=== PATIENT | female | born 2000 | race Caucasian/White ===

== ENCOUNTER 2024-01-14 13:47 | Emergency (ER) | payer OTHER, SELFPAY ==
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
[2024-01-14 13:59] VITALS: BP 123/77; PULSE 117; RESP 16; TEMP 36.6; O2SAT 97; BMI 25.4
[2024-01-14] MEDS: Lidocaine HCl 1 % MPF 5 ML VIAL SUBCUT (17:29)
[2024-01-14 17:41] VITALS: BP 116/83; PULSE 107; RESP 16; TEMP 36.4; O2SAT 94
[2024-01-14 17:54] VITALS: BP 116/83; PULSE 107; RESP 16; TEMP 36.4; O2SAT 94
== END 2024-01-14 17:54 | disposition home or self-care (01) ==
PROVIDERS: Emergency Provider Emergency Medicine
DX: S01.511A Laceration without foreign body of lip, initial encounter (principal); Y04.2XXA Assault by strike against or bumped into by another person, initial encounter; Y93.89 Activity, other specified; Y92.511 Restaurant or cafe as the place of occurrence of the external cause; Y99.9 Unspecified external cause status
CPT/HCPCS: 12013; 70450; 72125; 99282; 99284; J2003

== ENCOUNTER 2025-01-19 14:17 | Emergency (ER) | payer MEDICAID, SELFPAY ==
--- NOTE | ~2025-01-19 | US_ITS ---
CLINICAL HISTORY: RUQ epigastric pain --- Additional Notes or Special Instructions: look at GB, liver, ducts, pancreas US limited to right upper quadrant Comparison: None Findings: Liver is normal size and reveals homogeneous echotexture. No focal hepatic lesions. No intrahepatic ductal dilatation. Right lobe length measures 14.9 cm. Portal vein reveals hepatopetal flow. Common bile duct measures 4 mm. Gallbladder reveals a shadowing stones in the region of gallbladder neck. No wall thickening or pericholecystic fluid.. No sonographic Beauchamp's sign. Impression: 1. Cholelithiasis, without sonographic evidence of cholecystitis. This document has been electronically signed by: Obed Rivers MD on 01/19/2025 16:16:17
[2025-01-19 14:22] VITALS: BP 108/71; PULSE 80; RESP 18; TEMP 36.2; O2SAT 99; BMI 24.5
[2025-01-19 14:42] LABS: MANUAL DIFF FLAG NO
[2025-01-19 14:44] LABS: Hematocrit 39.6 % (37.0-47.0); Hemoglobin 13.2 g/dl (12.0-16.0); Imm Gran Abs Auto 0.01 X10*3/uL (0.00-0.03); Imm Gran Pct Auto 0.2 % (0.0-0.4); Lymphocytes Absolute Auto 1.6 X10*3/uL (1.2-4.9); Mean Corpuscular HGB Conc 33.3 g/dl (31.0-35.0); Mean Corpuscular Hemoglobin 30.6 pg (27.0-33.0); Mean Corpuscular Volume 91.7 fL (80.0-98.0); NRBC Abs Auto 0.000 X10*3/uL (0.0-0.012); NRBC Pct Auto 0.0 /100WBC (0.0-0.2); Platelet Count 191 X10*3/uL (160-400); Red Blood Count 4.32 X10*6/uL (4.20-5.50); White Blood Count 4.3 X10*3/uL (4.8-10.8)
[2025-01-19 14:50] LABS: Appearance Urine Clear; Glucose Urine UA Negative (Negative); PH 6.0 (5.0-9.0); Specific Gravity - Urine >= 1.030 (1.005-1.025)
[2025-01-19 14:56] LABS: Alanine Aminotransferase 22 U/L (0-31); Albumin Level 4.8 g/dL (3.5-5.0); Alkaline Phosphatase 56 U/L (39-117); Anion Gap 11 (12-20); Aspartate Amino Transferase 22 U/L (5-31); Blood Urea Nitrogen 19 mg/dL (9-16); Calcium 9.5 mg/dL (8.4-10.2); Carbon Dioxide 28 mmol/L (22-29); Chloride 109 mmol/L (96-108); Creatinine Clr Calc Pharmacy 89.3; Estimated Glomerular Filt Rate > 60; Lipase 29 U/L (8-78); Magnesium 1.6 mg/dL (1.6-2.6); Potassium 4.0 mmol/L (3.3-5.1); Sodium 144 mmol/L (135-145); Total Protein 7.6 g/dL (6.5-8.0)
--- OUTSIDE RECORDS SUMMARY | 2025-01-19 15:15 | XMS_ITS | Clinical Summary ---
Author Organization [facility] Address [address] [place] [address] Care Team Providers Care Employee Communications Manager Name Role Phone Unavailable Primary Care Provider Unavailabl e Surgical History Surgery Date Site/Laterality Comments OTHER SURGICAL HISTORY 2019 PROCEDURE: [place] INDUCED DILATION AND CURETTAGE Medical History Medical History Date Comments Chlamydia trachomatis infect ion in mother during third trimester of 08/12/2022 DX:Chlamydia trachomatis inf ection in mother during third trimester of Family History Medical History Relation Name Comments Other: NF1 Brother random ma rks No Known Problems Father Breast cancer Father's side aunt Diabetes Maternal Grandmother No Known Problems Mother Diabetes Paternal Grandmother Other: multiple tumors Sister 1 grows in her jaw No Known Problems Sister 2 Relation Name Status Comments Brother Alive Father Alive Father's side aunt Alive Maternal Grandfather Alive Maternal Grandmother Alive Mother Alive Paternal Grandfather Alive Paternal Grandmother Alive Sister 1 Alive Sister 2 Alive Social History Tobacco Use Types Packs/Day Years Used Date Smoking Tobacco: Never Smokeless Tobacco: Never Alcohol Use Standard Drinks/Week Comments Yes 0 (1 standard drink = 0.6 oz pur e alcohol) Comments Unknown Sex and Gender Information Value Date Recorded Sex Assigned at Not on file Legal Sex Female 9:01 PM EST Gender Identity Not on file Sexual Orientation Not on file Obstetrics History Last Filed Vital Signs Vital Sign Reading Time Taken Comments Blood Pressure 112/82 12/15/2023 2:24 PM EDT Pulse 80 12/15/2023 2:24 PM EDT Temperature - - Respiratory Rate - - Oxygen Saturation - - Inhaled Oxygen Concentration - - Weight 60.3 kg (133 lb) 12/15/2023 2:24 PM EDT Height 152.4 cm (5') 12/15/2023 2:24 PM EDT Body Mass Index 25.97 12/15/2023 2:24 PM EDT Plan of Treatment Health Maintenance Due Date Last Done Comments Gonorrhea/Chlamydia Screening 2000 HPV Vaccines (1 - 3-dose series) 06/04/2015 Hepatitis B Vaccines (1 of 3 - 19+ 3-dose series) 06/04/2019 Cervical Cancer Screening: P ap Smear 2021 HIV Screening 04/22/2023 Hepatitis C Screening 04/22/2023 Social Influencers of Health Screening 04/22/2023 Depression Screening 03/28/2024 COVID-19 Vaccine (1 - 2023-2 5 season) 2024 Influenza Vaccine (#1) 2024 DTaP,Tdap,and Td Vaccines (2 - Td or Tdap) 07/21/2032 07/21/2022 RSV Immunization Adult Patie nts (1 - 1-dose 75+ series) 06/04/2075 HIB Vaccines Aged Out No longer eligi ble based on patient's age to complete this topic Hepatitis A Vaccines Aged Out No long er eligible based on patient's age to complete this topic IPV Vaccines Aged Out No longer eligi ble based on patient's age to complete this topic MMR Vaccines Aged Out No longer eligi ble based on patient's age to complete this topic Meningococcal ACWY Vaccine Aged Out N o longer eligible based on patient's age to complete this topic Meningococcal B Vaccine Aged Out No l onger eligible based on patient's age to complete this topic Pneumococcal Vaccine: Pediat rics (0 to 5 Years) and At-Risk Patients (6 to 49 Years) Aged Out No longer eligi ble based on patient's age to complete this topic RSV Immunization Patients Un dina 20 months Aged Out No longer eligible b ased on patient's age to complete this topic Varicella Vaccines Aged Out No longer eligible based on patient's age to complete this topic
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
--- NOTE | 2025-01-19 15:32 | ED.ABDPAIN ---
HPI - Abdominal Pain General Chief Complaint: Abdominal Pain Stated Complaint: abd pain Time Seen by Provider: 01/19/25 15:11 Source: patient Mode of arrival: ambulatory Limitations: no limitations History of Present Illness ED Provider: VIDA WRIGHT PA-C HPI narrative: 24-year-old female with no significant past medical history presents to the ED today for evaluation of intermittent epigastric abdominal pain x2 months. Reports pain, knot sensation to her epigastric region. Pain radiates straight through to her back. Pain is exacerbated with eating. Primarily notices the pain when she lies down for bed at night. Admits to self inducing vomiting to make her feel better. Denies nausea. Denies diarrhea, constipation. Admits to heavy drinking every weekend. Reports consuming alcohol last night. Endorses smoking marijuana approximately 2 times monthly. Denies fever, chills, urinary symptoms. No history of abdominal surgeries. Related Data Previous Rx's ?Medication ?Instructions ?Recorded amoxicillin 875 mg-potassium 1 tab PO BID 7 days #14 tabs 01/14/24 clavulanate 125 mg tablet ibuprofen 600 mg tablet 600 mg PO Q6H PRN pain #30 tabs 01/14/24 Allergies Allergy/AdvReac Type Severity Reaction Status Date / Time No Known Allergies Allergy Verified 01/19/25 14:24 Review of Systems Review of Systems Yes all other systems are reviewed and are negative PMFSH Past Medical History Attestation statement: The following information was validated with the patient. Source: old records reviewed and nursing notes reviewed Physical Exam ED Vital Signs: Vital Signs - 24 hr 01/19/25 14:22 01/19/25 16:42 01/19/25 17:10 Temperature 97.1 F 98 F 98 F Pulse Rate 80 78 78 Respiratory Rate 18 18 18 Blood Pressure 108/71 110/70 110/70 Pulse Oximetry 99 99 99 Oxygen Delivery Method Room Air Room Air Room Air BMI result Body Mass Index 24.5 vital signs stable, afebrile General: Well appearing, in no acute distress. Skin: Warm, dry, intact. No rashes or lesions. Head: Normocephalic, atraumatic. EENT: Hearing is intact b/l. Conjunctiva clear. Sclera is anicteric. PERRLA. EOM intact. Moist mucous membranes.? Cardiac: Chest wall symmetric. RRR Lungs: Normal respiratory effort without accessory muscle use. CTA bilaterally. Abdomen: soft, ND, ttp of epigastric region and RUQ without rebound or guarding. no rebound tenderness or guarding. Positive BS x4. negative beauchamp sign. Ext: Upper and lower extremities atraumatic, without tenderness, deformity, swelling or erythema Neuro: AOx3. Normal speech Course Course Course Narrative: CBC showing leukopenia to 4.3, no left shift. H&H stable. Chemistry without acute electrolyte abnormality requiring intervention. BUN slightly elevated to 19 with normal creatinine. Liver function WNL. Lipase WNL. Beta quant undetectable. Urine without infection. Abdominal ultrasound shows cholelithiasis, no gallbladder wall thickening or pericholecystic fluid, no sonographic Beauchamp's sign. > I discussed results with patient. She is sitting comfortably on the bed. Denies any pain at present. She is tolerating p.o.. > she has biliary colic. There is no evidence of acute abdomen at this time, no indication for emergent surgery. > will discharge patient home with supportive care. Advised low-fat diet. General surgery referral provided, advised follow up. Patient has remained stable throughout ED visit today. Discussed worrisome signs and symptoms and when to return to the ED. All questions answered at this time. Patient is agreeable with disposition and stable for discharge. Medical Decision Making Medical Decision Making MDM Narrative: 24-year-old female with no significant past medical history presents to the ED today for evaluation of intermittent epigastric abdominal pain x2 months. Vital signs stable. Afebrile. She is well-appearing, lying comfortably on the exam table. On exam, soft, ND, ttp of epigastric region and RUQ without rebound or guarding. no rebound tenderness or guarding. Positive BS x4. negative beauchamp sign. Differential diagnosis includes biliary colic, renal colic, nephrolithiasis, gastroenteritis, gastritis, PUD. Abdominal exam without peritoneal signs. No evidence of acute abdomen at this time. Well appearing. Moderate suspicion for acute hepatobiliary disease (including acute cholecystitis). Less likely to represent acute pancreatitis, perforated ulcer/ GI bleed, acute infectious processes (pneumonia, hepatitis, pyelonephritis), atypical appendicitis, vascular catastrophe, bowel obstruction or viscus perforation. Presentation not consistent with other acute, emergent causes of abdominal pain at this time. Plan for labs, US, US, and re-evaluation. Denies any pain at present - will hold on meds. Differential Diagnosis Differential Diagnoses: The differential diagnosis associated with the presentation includes as above. Admission/Observation Not indicated Lab Data MDM Lab Attestation statement: I reviewed the patient's lab results. as above. 01/19/25 14:37 01/19/25 14:37 Labs: Lab Results 01/19/25 Range/Units 14:37 WBC 4.3 L (4.8-10.8) X10*3/uL RBC 4.32 (4.20-5.50) X10*6/uL Hgb 13.2 (12.0-16.0) g/dl Hct 39.6 (37.0-47.0) % MCV 91.7 (80.0-98.0) fL MCH 30.6 (27.0-33.0) pg MCHC 33.3 (31.0-35.0) g/dl RDW 12.2 (11.0-16.0) % Plt Count 191 (160-400) X10*3/uL MPV 11.0 (9.4-12.3) fL Immature Gran % (Auto) 0.2 (0.0-0.4) % Neut % (Auto) 46.9 (45-73) % Lymph % (Auto) 36.3 (20-40) % [place] % (Auto) 13.9 H (2-11) % Eos % (Auto) 2.5 (0-4) % Baso % (Auto) 0.2 (0-2) % Lymph # (Auto) 1.6 (1.2-4.9) X10*3/uL [place] # (Auto) 0.6 (0.1-1.2) X10*3/uL Eos # (Auto) 0.1 (0.0-0.4) X10*3/uL Baso # (Auto) 0.0 (0.0-0.2) X10*3/uL Abs Immat Gran (auto) 0.01 (0.00-0.03) X10*3/uL Absolute Neuts (auto) 2.0 (2.0-8.3) x10*3/uL Absolute Nucleated RBC 0.000 (0.0-0.012) X10*3/uL Nucleated RBC % (auto) 0.0 (0.0-0.2) /100WBC Sodium 144 (135-145) mmol/L Potassium 4.0 (3.3-5.1) mmol/L Chloride 109 H (96-108) mmol/L Carbon Dioxide 28 (22-29) mmol/L Anion Gap 11 L (12-20) BUN 19 H (9-16) mg/dL Creatinine 0.80 (0.5-1.4) mg/dL Estim Creat Clear Calc 89.3 Estimated GFR > 60 Random Glucose 87 (60-115) mg/dL Calcium 9.5 (8.4-10.2) mg/dL Magnesium 1.6 (1.6-2.6) mg/dL Total Bilirubin 0.3 (0.0-1.0) mg/dL AST 22 (5-31) U/L ALT 22 (0-31) U/L Alkaline Phosphatase 56 (39-117) U/L Total Protein 7.6 (6.5-8.0) g/dL Albumin 4.8 (3.5-5.0) g/dL Lipase 29 (8-78) U/L Beta HCG, Quant < 2 mIU/mL Urine Color Yellow Urine Appearance Clear Urine pH 6.0 (5.0-9.0) Ur Specific [place] >= 1.030 H (1.005-1.025) Urine Protein Trace (Neg-Trace) mg/dL Urine Glucose (UA) Negative (Negative) mg/dL Urine Ketones Negative (Negative) mg/dL Urine Blood Negative (Negative) Urine Nitrite Negative (Negative) Ur Leukocyte Esterase Negative (Negative) Independent Interpretation I performed an independent interpretation of an: Ultrasound Interpretation: Right upper quadrant ultrasound showing cholelithiasis Radiology Impression Discussion of test interpretation with radiology: I have reviewed the radiologist's reading. Radiologist Impression: Date of Service: 01/19/25 Procedure(s): US abdomen limited Accession Number(s): [id number] cc: [facility]; Vida Wright~ Reason for Exam: RUQ/epigastric pain CLINICAL HISTORY: RUQ epigastric pain --- Additional Notes or Special Instructions: look at GB, liver, ducts, pancreas US limited to right upper quadrant Comparison: None Findings: Liver is normal size and reveals homogeneous echotexture. No focal hepatic lesions. No intrahepatic ductal dilatation. Right lobe length measures 14.9 cm. Portal vein reveals hepatopetal flow. Common bile duct measures 4 mm. Gallbladder reveals a shadowing stones in the region of gallbladder neck. No wall thickening or pericholecystic fluid.. No sonographic Beauchamp's sign. Impression: 1. Cholelithiasis, without sonographic evidence of cholecystitis. This document has been electronically signed by: Obed Rivers MD on 01/19/2025 16:16:17 External Record Review External record reviewed: Inpatient record Prescription Management I considered prescription management with: Pain Medication Chronic Conditions Patient?s care impacted by: Other (etoh use) Social Determinants Patient?s care significantly limited by Social Determinants of Health including: Other Social Determinant of Health Critical Care Time Critical Care Time Critical Care Time: No Discharge Plan Discharge Clinical Impression: Biliary colic Patient Disposition: Home, Self-Care Instructions: Biliary Colic (ED), Gallstones (ED), Low Fat Diet (ED) Additional Instructions: You were evaluated in the ED today for intermittent abdominal pain. Your blood work is reassuring. Your urine does not show infection. The ultrasound of your abdomen shows stones within your gallbladder. There is no sign of active infection. Treatment for this is pain control. It is reassuring that you are not in any pain at the moment. You are tolerating food/drink. I also recommend a low-fat diet as fatty foods can worsen your symptoms. You need to follow up with general surgery outpatient. I have provided you with a referral. Call them to establish care. They will not call you. Return with any new or worsening symptoms. In the case of an emergency call 911. Prescriptions: No Action amoxicillin-pot clavulanate 875-125 mg tablet 1 tab PO BID 7 Days Qty: 14 0RF ibuprofen 600 mg tablet 600 mg PO Q6H PRN (Reason: pain) Qty: 30 0RF Referrals: [facility] General Surgeons [Provider Group, General Surgery] [place],[facility] [Primary Care Provider, Medical] Interventions: ED Discharge Assessment Last Done: 01/19/25 17:10 Discharge Date/Time: 01/19/25 17:11 Print Language: Romanian
[2025-01-19 16:42] VITALS: BP 110/70; PULSE 78; RESP 18; TEMP 36.6; O2SAT 99
[2025-01-19 17:10] VITALS: BP 110/70; PULSE 78; RESP 18; TEMP 36.6; O2SAT 99
== END 2025-01-19 17:11 | disposition home or self-care (01) ==
PROVIDERS: Physician Assistant Medical; Emergency Provider Emergency Medicine Emergency Medical Services
DX: K80.50 Calculus of bile duct without cholangitis or cholecystitis without obstruction (principal); R10.11 Right upper quadrant pain; R11.10 Vomiting, unspecified
CPT/HCPCS: 36415; 76705; 80053; 81003; 83690; 83735; 84702; 85025; 99283; 99284

== ENCOUNTER → 2025-01-19 15:32 | Outpatient (BNV) | payer MEDICAID, SELFPAY | PROVIDERS: Emergency Provider Emergency Medicine Emergency Medical Services; Visit Provider Radiology Diagnostic Radiology | DX: K80.20 Calculus of gallbladder without cholecystitis without obstruction (principal) | CPT/HCPCS: 76705 ==

== ENCOUNTER 2025-03-03 08:36 | Emergency (ER) | payer MEDICAID, SELFPAY ==
--- NOTE | ~2025-03-03 | CT_ITS ---
CLINICAL HISTORY: diffuse abd pain, RUQ pain CT ABDOMEN AND PELVIS WITH CONTRAST Comparison: None provided Findings: No basilar consolidation or pleural effusion. Small hiatal hernia. No acute abnormalities in the solid organs. No large calcified gallstone. No urolithiasis. Normal caliber abdominal aorta with patent mesenteric arteries. No bowel obstruction, pneumoperitoneum, or pneumatosis. No significant mesenteric or paracolic edema. The appendix is identified. No acute appendicitis. Anteverted uterus with IUD in place. Trace free fluid in the posterior cul-de-sac is likely physiologic in etiology. 2 cm irregular cystic lesion in the left adnexa with wall enhancement is likely ovarian in etiology. Right ovary unremarkable. Urinary bladder unremarkable. The bones are intact. IMPRESSION: 1. No obstructive or acute inflammatory changes in the gastrointestinal and genitourinary tracts. 2. 2.0 cm involuting left ovarian cyst. 3. Trace free fluid in the pelvis. This document has been electronically signed by: Sobia Roblero DO on 03/03/2025 11:56:31
[2025-03-03 08:42] VITALS: BP 121/73; PULSE 104; RESP 20; TEMP 36.5; O2SAT 100; BMI 24.4
[2025-03-03 08:57] LABS: MANUAL DIFF FLAG NO
[2025-03-03 09:08] LABS: Hematocrit 39.9 % (37.0-47.0); Hemoglobin 13.4 g/dl (12.0-16.0); Imm Gran Abs Auto 0.03 X10*3/uL (0.00-0.03); Imm Gran Pct Auto 0.6 % (0.0-0.4); Lymphocytes Absolute Auto 2.1 X10*3/uL (1.2-4.9); Mean Corpuscular HGB Conc 33.6 g/dl (31.0-35.0); Mean Corpuscular Hemoglobin 30.5 pg (27.0-33.0); Mean Corpuscular Volume 90.7 fL (80.0-98.0); NRBC Abs Auto 0.000 X10*3/uL (0.0-0.012); NRBC Pct Auto 0.0 /100WBC (0.0-0.2); Platelet Count 231 X10*3/uL (160-400); Red Blood Count 4.40 X10*6/uL (4.20-5.50); White Blood Count 5.2 X10*3/uL (4.8-10.8)
[2025-03-03 09:30] LABS: Alanine Aminotransferase 38 U/L (0-31); Albumin Level 4.7 g/dL (3.5-5.0); Alkaline Phosphatase 58 U/L (39-117); Anion Gap 15 (12-20); Aspartate Amino Transferase 24 U/L (5-31); Blood Urea Nitrogen 10 mg/dL (9-16); Calcium 9.5 mg/dL (8.4-10.2); Carbon Dioxide 25 mmol/L (22-29); Chloride 112 mmol/L (96-108); Creatinine Clr Calc Pharmacy 113.3; Estimated Glomerular Filt Rate > 60; Lipase 33 U/L (8-78); Potassium 4.1 mmol/L (3.3-5.1); Sodium 148 mmol/L (135-145); Total Protein 7.4 g/dL (6.5-8.0)
[2025-03-03 09:31] LABS: Appearance Urine Clear; Glucose Urine UA Negative (Negative); PH 6.0 (5.0-9.0); Specific Gravity - Urine 1.020 (1.005-1.025)
--- NOTE | 2025-03-03 10:01 | ED.ABDPAIN ---
HPI - Abdominal Pain General Chief Complaint: Abdominal Pain Stated Complaint: Stomach Pain Time Seen by Provider: 03/03/25 09:55 Source: patient and RN notes reviewed Mode of arrival: ambulatory Limitations: no limitations History of Present Illness ED Provider: Farzana Cartagena PA-C HPI narrative: This is a 24-year-old female, with a history of cholelithiasis, who presents emergency department with concerns of acute onset of abdominal pain which started this morning. Patient states that this morning she awoke with upper abdominal pain that radiates to both of her ribs. She states that she describes this pain as a soreness, and a huge not in her abdomen. She states that the pain is now diffusely throughout her entire abdomen, though it is worse in the epigastric and right upper quadrant. Also endorsing vomiting. Endorsing constipation, last bowel movement was last night. No fevers or chills. No diarrhea. Denies any urinary frequency, urgency, dysuria, vaginal discharge or vaginal bleeding. No sick contacts, recent travel, raw or undercooked foods, or other exposures. In December she had an episode of renal colic, states that her current pain is worse than this episode. No history of abdominal surgeries. She did eat [employer] around 2:00 a.m. this morning. MD elicited complaint: abdominal pain Pertinent past history: none Onset (ago): day(s) Pain Consistency: constant Location: diffuse, epigastric and RUQ Quality: cramping, stabbing and aching Radiation: LUQ and RUQ Migration to: no migration Exacerbating factors: vomiting Relieving factors: nothing Associated symptoms: nausea and vomiting Related Data Previous Rx's ?Medication ?Instructions ?Recorded amoxicillin 875 mg-potassium 1 tab PO BID 7 days #14 tabs 01/14/24 clavulanate 125 mg tablet ibuprofen 600 mg tablet 600 mg PO Q6H PRN pain #30 tabs 01/14/24 acetaminophen 500 mg tablet 500 mg PO Q6H PRN pain #30 tabs 03/03/25 (Tylenol Extra Strength) ondansetron 4 mg disintegrating 4 mg PO Q6H PRN nausea and 03/03/25 tablet vomiting #10 tabs Allergies Allergy/AdvReac Type Severity Reaction Status Date / Time No Known Allergies Allergy Verified 03/03/25 08:45 Review of Systems Review of Systems Constitutional : No Fever, No Chills ENT/Mouth : No sore throat, No Rhinorrhea Eyes: No Eye Pain, No Swelling, No Redness Cardiovascular : No Chest Pain, No SOB Respiratory : No Cough, No Sputum Gastrointestinal : + Nausea, + Vomiting, + Diarrhea, + abdominal Pain Genitourinary : No Dysuria, No Hematuria Musculoskeletal : No joint pain, No Myalgias, No Joint Swelling Skin : No Skin Lesions, positive skin rash Neuro : No Weakness, No Numbness, No Headache All other systems reviewed and are negative Yes all other systems are reviewed and are negative Constitutional: Reports as per HPI [facility] Social History Social History Substance Use Type: Marijuana Physical Exam ED Vital Signs: Vital Signs - 24 hr 03/03/25 13:21 Temperature 97.7 F Pulse Rate 80 Respiratory Rate 20 Blood Pressure 121/73 Pulse Oximetry 100 Oxygen Delivery Method Room Air BMI result Body Mass Index 24.4 Const General: cooperative, comfortable and no acute distress Orientation/consciousness: patient oriented x3 Limitations: no limitations HENMT Head: Yes normal to inspection, Yes normocephalic and Yes atraumatic Ears: hearing grossly normal bilaterally General nose exam: Normal external nose present Face and sinus: Yes normal facial exam Mouth: Normal oral and palatal mucosa present, oropharynx normal and moist mucous membranes Throat: Yes posterior oropharynx normal Eyes General: appearance normal, both eyes and all related structures Eyelids: Yes eyelids normal Conjunctivae: conjunctivae normal Sclerae: sclerae normal Pupils: Equal, round and reactive pupils present EOM: EOMs intact bilaterally Neck Neck: Yes normal visual inspection, Yes full ROM and Yes no lymphadenopathy Lymphatic: no lymphadenopathy noted Chest Chest palpation & inspection: normal inspection of the chest Resp Effort & Inspection: normal respiratory effort and able to speak in complete sentences Auscultation: clear to auscultation bilaterally, no crackles, no rales, no rhonchi and no wheezes Cardio Rate: regular rate Rhythm: regular rhythm Heart sounds: S1 normal heart sound present and S2 normal heart sound present GI Other: Abdomen is soft, with tenderness palpation in the epigastrium and right upper quadrant as well as diffusely throughout, no rebound or guarding Inspection: Yes normal to inspection Skin General skin exam: no rashes or lesions noted Trauma: no lacerations or abrasions Wounds: no wounds Neuro General: patient oriented x3 and moves all extremities Cranial nerves: Yes Equal, round and reactive pupils present Extrem General: Yes normal to inspection Right upper extremity: normal to inspection Left upper extremity: normal to inspection Right lower extremity: normal to inspection Left lower extremity: normal to inspection Medical Decision Making Medical Decision Making [facility] Narrative: This is a 24-year-old female who presents emergency department for evaluation of abdominal pain, nausea, and vomiting which started upon awakening this morning. She does have a history of cholelithiasis, diagnosed in December. States that her current pain is more severe than which she had in the past. On arrival, patient mildly tachycardic at 104bpm all other vital signs within normal limits. She is afebrile. Labs were obtained prior to my evaluation, she has no leukocytosis, stable H&H, she is slightly hypernatremic at 148, otherwise no significant electrolyte derangement. She is not . Urine does not appear to be infected. Differential diagnoses include acute gastritis, gastroenteritis, renal colic, cholecystitis. Given patient has diffuse tenderness throughout her entire abdomen, will obtain CT abdomen and pelvis will medicate with IV fluids, IV antiemetics, and IV Tylenol. We will continue to closely monitor pending overall workup. >> CT abd revealing left ovarian cyst - advised to f/u with OBGYN. She has no pelvic pain therefore additional diagnostic imaging not indicated. Pt reassessed and she is feeling much better and eager for d/c. Given return precautions, pt stable for d.c. Differential Diagnosis Differential Diagnoses: The differential diagnosis associated with the presentation includes See above Lab Data [facility] Lab Attestation statement: I reviewed the patient's lab results. See [facility] 03/03/25 08:51 03/03/25 08:51 Labs: Lab Results 03/03/25 03/03/25 Range/Units 08:51 09:25 WBC 5.2 (4.8-10.8) X10*3/uL RBC 4.40 (4.20-5.50) X10*6/uL Hgb 13.4 (12.0-16.0) g/dl Hct 39.9 (37.0-47.0) % MCV 90.7 (80.0-98.0) fL MCH 30.5 (27.0-33.0) pg MCHC 33.6 (31.0-35.0) g/dl RDW 12.2 (11.0-16.0) % Plt Count 231 (160-400) X10*3/uL MPV 10.8 (9.4-12.3) fL Immature Gran % (Auto) 0.6 H (0.0-0.4) % Neut % (Auto) 49.3 (45-73) % Lymph % (Auto) 40.8 H (20-40) % [place] % (Auto) 7.2 (2-11) % Eos % (Auto) 1.7 (0-4) % Baso % (Auto) 0.4 (0-2) % Lymph # (Auto) 2.1 (1.2-4.9) X10*3/uL [place] # (Auto) 0.4 (0.1-1.2) X10*3/uL Eos # (Auto) 0.1 (0.0-0.4) X10*3/uL Baso # (Auto) 0.0 (0.0-0.2) X10*3/uL Abs Immat Gran (auto) 0.03 (0.00-0.03) X10*3/uL Absolute Neuts (auto) 2.6 (2.0-8.3) x10*3/uL Absolute Nucleated RBC 0.000 (0.0-0.012) X10*3/uL Nucleated RBC % (auto) 0.0 (0.0-0.2) /100WBC Sodium 148 H (135-145) mmol/L Potassium 4.1 (3.3-5.1) mmol/L Chloride 112 H (96-108) mmol/L Carbon Dioxide 25 (22-29) mmol/L Anion Gap 15 (12-20) BUN 10 (9-16) mg/dL Creatinine 0.63 (0.5-1.4) mg/dL Estim Creat Clear Calc 113.3 Estimated GFR > 60 Random Glucose 99 (60-115) mg/dL Calcium 9.5 (8.4-10.2) mg/dL Total Bilirubin 0.1 (0.0-1.0) mg/dL AST 24 (5-31) U/L ALT 38 H (0-31) U/L Alkaline Phosphatase 58 (39-117) U/L Total Protein 7.4 (6.5-8.0) g/dL Albumin 4.7 (3.5-5.0) g/dL Lipase 33 (8-78) U/L Beta HCG, Quant < 2 mIU/mL Urine Color Yellow Urine Appearance Clear Urine pH 6.0 (5.0-9.0) Ur Specific [place] 1.020 (1.005-1.025) Urine Protein Negative (Neg-Trace) mg/dL Urine Glucose (UA) Negative (Negative) mg/dL Urine Ketones Negative (Negative) mg/dL Urine Blood Negative (Negative) Urine Nitrite Negative (Negative) Ur Leukocyte Esterase Negative (Negative) Radiology Impression Discussion of test interpretation with radiology: I have reviewed the radiologist's reading. Radiologist Impression: Findings: No basilar consolidation or pleural effusion. Small hiatal hernia. No acute abnormalities in the solid organs. No large calcified gallstone. No urolithiasis. Normal caliber abdominal aorta with patent mesenteric arteries. No bowel obstruction, pneumoperitoneum, or pneumatosis. No significant mesenteric or paracolic edema. The appendix is identified. No acute appendicitis. Anteverted uterus with IUD in place. Trace free fluid in the posterior cul-de-sac is likely physiologic in etiology. 2 cm irregular cystic lesion in the left adnexa with wall enhancement is likely ovarian in etiology. Right ovary unremarkable. Urinary bladder unremarkable. The bones are intact. IMPRESSION: 1. No obstructive or acute inflammatory changes in the gastrointestinal and genitourinary tracts. 2. 2.0 cm involuting left ovarian cyst. 3. Trace free fluid in the pelvis. This document has been electronically signed by: Sobia Roblero DO on 03/03/2025 11:56:31 Dictated By: Sobia Roblero MD Medications Administered Discontinued Medications Generic Name Dose Route Start Last Admin Trade Name Freq PRN Reason Stop Dose Admin Sodium Chloride 1,000 mls @ 999 mls/hr 03/03/25 10:24 03/03/25 13:21 Ns IV 03/03/25 11:24 Infused .Q1H1M ONE Infusion Acetaminophen 1,000 mg in 100 mls @ 400 mls/hr 03/03/25 10:24 03/03/25 13:12 Ofirmev IV 03/03/25 10:38 Infused ONCE ONE Infusion Iohexol 100 ml 03/03/25 11:27 03/03/25 11:29 Iohexol 350 Mg/Ml 100 Ml Infus..Btl IV 03/03/25 11:28 85 ml ONCE ONE Administration Ondansetron HCl 4 mg 03/03/25 10:24 03/03/25 10:53 Ondansetron Hcl 4 Mg/2 Ml Vial IVPUSH 03/03/25 10:25 4 mg ONCE ONE Administration Discharge Plan Discharge Clinical Impression: Abdominal pain, Ovarian cyst Patient Disposition: Home, Self-Care Instructions: Abdominal Pain (ED) Additional Instructions: You were seen in the emergency department due to abdominal pain. We had medicated you with IV fluids, IV Tylenol, and IV Zofran. Your CT scan of your abdomen reveals a left ovarian cyst, this can be a normal finding and lumen however I want you to follow-up with an OBGYN. Call the previous OBGYN the you saw in the past, you also can see referral to our Women's services here at [facility]. Stick to a bland diet over the next several days, avoid spicy or fried foods. Avoid dairy containing products. If any new or worsening symptoms occur, including but not limited to chest pain, shortness of breath, worsening abdominal pain, inability to eat or drink secondary to nausea and vomiting, please seek emergent care. Prescriptions: New acetaminophen [Tylenol Extra Strength] 500 mg tablet 500 mg PO Q6H PRN (Reason: pain) Qty: 30 0RF ondansetron 4 mg tablet,disintegrating 4 mg PO Q6H PRN (Reason: nausea and vomiting) Qty: 10 0RF No Action amoxicillin-pot clavulanate 875-125 mg tablet 1 tab PO BID 7 Days Qty: 14 0RF ibuprofen 600 mg tablet 600 mg PO Q6H PRN (Reason: pain) Qty: 30 0RF Referrals: [facility] Women's Services [Provider Group] Interventions: ED Discharge Assessment Last Done: 03/03/25 13:21 Discharge Date/Time: 03/03/25 13:23 Print Language: Citizen [place]
--- OUTSIDE RECORDS SUMMARY | 2025-03-03 10:17 | XMS_ITS | Encounter Summary ---
Author Organization [facility] Address [address] [place] [address] Phone Care Team Providers Care Store Receiver Name Role Phone Tangela Rojas MD Primary Care Provider Unavailab le Encounter Details Date Type Department Care Team (Late st Contact Info) Description 06/02/2012 Documentation EM Family Medicine [address] [place], [place] [phone] Family Medicine, Physician [address] [place] [address] Social History Tobacco Use Types Packs/Day Years Used Date Smoking Tobacco: Never Assessed Comments Unknown Sex and Gender Information Value Date Recorded Sex Assigned at Not on file Legal Sex Female 4:52 PM EDT Gender Identity Not on file Sexual Orientation Not on file documented as of this encounter Plan of Treatment Not on file documented as of this encounter Visit Diagnoses Not on filedocumented in this encounter Care Teams Store Receiver Relationship Specialty Start Date End Date Tangela Rojas MD PCP - General Pediatrics 11/23/16 documented as of this encounter
--- OUTSIDE RECORDS SUMMARY | 2025-03-03 10:17 | XMS_ITS | Encounter Summary ---
Author Organization [facility] Address [address] [place] [address] Phone Care Team Providers Care Service Cleaner Name Role Phone Tangela Rojas MD Primary Care Provider Unavailab le Encounter Details Date Type Department Care Team (Late st Contact Info) Description 10/23/2010 Documentation EM Family Medicine [address] [place], [place] [phone] Family Medicine, Physician [address] [place] [address] Social History Tobacco Use Types Packs/Day Years [...] on filedocumented in this encounter Care Teams Service Cleaner Relationship Specialty Start Date End Date Tangela Rojas MD PCP - General Pediatrics 11/23/16 documented as of this encounter
--- OUTSIDE RECORDS SUMMARY | 2025-03-03 10:17 | XMS_ITS | Clinical Summary ---
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 Wearing ankle bracelet, has court hearing next month. Reports that drinking is no longer fun. It makes her depressed. Has not been engaged in therapy. (11/2017) Admitted to [facility] ED for agitation and violent behavior secondary [...] EDT) CHLAMYDIA TRACHOMATIS Not Detected Not Detected [facility] NEISERIA GONORRHOEAE Not Detected Not Detected [facility] SPECIMEN TYPE VAGINAL [facility] Other (Vaginal) 10/04/2024 1 :13 PM EDT 10/04/2024 5:21 PM EDT Irene Germain GROUND SERVICES INSTRUCTOR LAB GENERAL ORDERABLES Edith l Result [facility] [address] [place] [address] from Last 3 Months or Most Recently Relevant to Health Maintenance Insurance [facility] [place] [address] [place] [address] C3 ACO [facility] A[facility] Member Subscriber Plan / Payer (Ef fective 2023-Present) Name:Becky Mandujano Relation to Subscriber:Self Name:Becky Mandujano Payer ID:[id number] Group ID:[id number] Type:Medicaid Address: [address] [place], [place] [address] ACO Member Subscriber Plan / Payer (Ef fective 2023-) Name:Becky Mandujano Relation to Subscriber:Self Name:Becky Mandujano Payer ID:[id number] Group ID:[id number] Type:Medicaid Address: [address] C3 ACO [facility] C3 ACO [facility] A[facility] Member Subscriber Plan / Payer (Ef fective 2023-) Name:Becky Mandujano Relation to Subscriber:Self Name:Becky Mandujano Payer ID:[id number] Group ID:[id number] Type:Medicaid Address: [address] C3 ACO [facility] [place] [address] C3 ACO Care Teams Etymology Teacher Relationship Specialty Start Date End Date Pcp, Unknown PCP - General 10/05/23 Additional Source Comments The information contained in this document represents components of the legal health record. It is not the complete legal health record.[facility]
--- OUTSIDE RECORDS SUMMARY | 2025-03-03 10:17 | XMS_ITS | Encounter Summary ---
Author Organization [facility] Address [address] [place] [address] Phone Care Team Providers Care Port Captain Name Role Phone Tangela Rojas MD Primary Care Provider Unavailab le Encounter Details Date Type Department Care Team (Late st Contact Info) Description 07/17/2013 Documentation EM Family Medicine [address] [place], [place] [phone] Family Medicine, Physician [address] [place] [address] Social History Tobacco Use Types Packs/Day Years [...] on filedocumented in this encounter Care Teams Port Captain Relationship Specialty Start Date End Date Tangela Rojas MD PCP - General Pediatrics 11/23/16 documented as of this encounter
--- OUTSIDE RECORDS SUMMARY | 2025-03-03 10:17 | XMS_ITS | Encounter Summary ---
Author Organization [facility] Address [address] [place] [address] Phone Care Team Providers Care Sandfill Operator Name Role Phone Tangela Rojas MD Primary Care Provider Unavailab le Encounter Details Date Type Department Care Team (Late st Contact Info) Description 07/17/2013 Documentation EM Family Medicine [address] [place], [place] [phone] Family Medicine, Physician [address] [place] [address] Social History Tobacco Use Types Packs/Day Years [...] on filedocumented in this encounter Care Teams Sandfill Operator Relationship Specialty Start Date End Date Tangela Rojas MD PCP - General Pediatrics 11/23/16 documented as of this encounter
--- OUTSIDE RECORDS SUMMARY | 2025-03-03 10:17 | XMS_ITS | Encounter Summary ---
Author Organization [facility] Address [address] [place] [address] Phone Care Team Providers Care Monument Setter Helper Name Role Phone Tangela Rojas MD Primary Care Provider Unavailab le Encounter Details Date Type Department Care Team (Late st Contact Info) Description 06/02/2012 Documentation EM Family Medicine [address] [place], [place] [phone] Family Medicine, Physician [address] [place] [address] Social History Tobacco Use Types Packs/Day Years [...] on filedocumented in this encounter Care Teams Monument Setter Helper Relationship Specialty Start Date End Date Tangela Rojas MD PCP - General Pediatrics 11/23/16 documented as of this encounter
--- OUTSIDE RECORDS SUMMARY | 2025-03-03 10:17 | XMS_ITS | Encounter Summary ---
Author Organization [facility] Address [address] [place] [address] Phone Care Team Providers Care Physicist Astrophysics Name Role Phone Tangela Rojas MD Primary Care Provider Unavailab le Encounter Details Date Type Department Care Team (Late st Contact Info) Description 07/17/2013 Documentation EM Family Medicine [address] [place], [place] [phone] Family Medicine, Physician [address] [place] [address] Social History Tobacco Use Types Packs/Day Years [...] on filedocumented in this encounter Care Teams Physicist Astrophysics Relationship Specialty Start Date End Date Tangela Rojas MD PCP - General Pediatrics 11/23/16 documented as of this encounter
--- OUTSIDE RECORDS SUMMARY | 2025-03-03 10:17 | XMS_ITS | Encounter Summary ---
Author Organization [facility] Address [address] [place] [address] Phone Care Team Providers Care Botanical Technical Officer Name Role Phone Tangela Rojas MD Primary Care Provider Unavailab le Encounter Details Date Type Department Care Team (Late st Contact Info) Description 10/23/2010 Documentation EM Family Medicine [address] [place], [place] [phone] Family Medicine, Physician [address] [place] [address] Social History Tobacco Use Types Packs/Day Years [...] on filedocumented in this encounter Care Teams Botanical Technical Officer Relationship Specialty Start Date End Date Tangela Rojas MD PCP - General Pediatrics 11/23/16 documented as of this encounter
--- OUTSIDE RECORDS SUMMARY | 2025-03-03 10:17 | XMS_ITS | Encounter Summary ---
Author Organization [facility] Address [address] [place] [address] Phone Care Team Providers Care Clerk Entry Level Name Role Phone Tangela Rojas MD Primary Care Provider Unavailab le Encounter Details Date Type Department Care Team (Late st Contact Info) Description 01/18/2013 Documentation [facility] Family Medicine [address] [place], [place] [phone] Family Medicine, Physician [address] [place] [address] Social History Tobacco Use Types Packs/Day Years [...] on filedocumented in this encounter Care Teams Clerk Entry Level Relationship Specialty Start Date End Date Tangela Rojas MD PCP - General Pediatrics 11/23/16 documented as of this encounter
--- OUTSIDE RECORDS SUMMARY | 2025-03-03 10:17 | XMS_ITS | Clinical Summary ---
Author Organization [facility] Address [address] [place] [address] Phone Care Team Providers Care Supervisor Benzene Refining Name Role Phone Tangela Rojas MD Primary Care Provider Unavailab le Allergies No known active allergies Medications No known medications Active Problems Problem Noted Date Diagnosed Date Marijuana abuse 12/19/2017 Overview (12/19/2017): Underage use. Alcohol abuse 11/19/2016 Overview (01/11/2018): Currently on probation for assaulting a police sergeant prec[employer] while intoxicated. Wearing ankle bracelet, has court hearing next month. Reports that drinking is no longer fun. It makes her depressed. Has not been engaged in therapy. (11/2017) Admitted to [facility] ED for agitation and violent behavior secondary to intoxication 12/2017, evaluated by [facility] - did not qualify for inpatient admission they suggested that a section 35 be filed however father declined. Anxiety 11/19/2016 Overview (12/19/2017): Currently receiving no treatment for this. Has declined therapy. Immunizations Immunization Administration Dates Next Due DTaP 5 06/25/2004, 2,04/19/2001,11/30,2000 HPV Vaccine 9 Valent 11/19/2016 HPV, Quadrivalent 07/13/2013 Hep A, ped/adol 07/13/2013,10/22/2010 Hep B, ped/adol 06/05/2001,2000,2000 Hib (PRP-T) 02/08/2002, 2,2000,08/04 IPV 06/25/2004, 4,2000,08/04 Influenza, injectable, quadr ivalent, preservative free 11/19/2016 MMR 06/25/2004,06/05/2001 Meningococcal Conj (Menactra) MCV4P 11/19/2016,0 06/01/2012 Pneumococcal Conjugate 06/05/2001,04/19/2001,12/2000 Tdap 06/01/2012 Varicella 06/25/2009,06/05/2001 Family History Relation Name Status Comments Brother Alive Brother: Alive and well Father Alive Father: Alive a nd well Mother Alive Mother: Alive a nd well Other Family history of Depression, Family history of Deafness, Family history of ADD/ADHD, Family history of Migraines, Family history of Asthma Sister 1 Alive Sister: Alive a nd well, Alive and well Sister 2 Alive Sister: Alive a nd well, Alive and well Social History Tobacco Use Types Packs/Day Years Used Date Smoking Tobacco: Never Smokeless Tobacco: Never Tobacco Cessation:Counseling Given: No Comments:Never smoker Alcohol Use Standard Drinks/Week Comments Yes 0 (1 standard drink = 0.6 oz pur e alcohol) Comments Unknown Sex and Gender Information Value Date Recorded Sex Assigned at Not on file Legal Sex Female 4:52 PM EDT Gender Identity Not on file Sexual Orientation Not on file Last Filed Vital Signs Vital Sign Reading Time Taken Comments Blood Pressure 115/74 12/19/2017 1:33 PM EDT Pulse 77 12/19/2017 1:33 PM EDT Temperature - - Respiratory Rate - - Oxygen Saturation - - Inhaled Oxygen Concentration - - Weight 47.4 kg (104 lb 6.4 oz) 12/19/2017 1:33 P M EDT Height 153.7 cm (5' 0.5 ) 12/19/2017 1:33 PM EDT Body Mass Index 20.05 12/19/2017 1:33 PM EDT Plan of Treatment Health Maintenance Due Date Last Done Comments DTaP,Tdap,and Td Vaccines (7 - Td or Tdap) 06/01/2022 06/01/2012, 06/25/2004, 02/08/2002, Additional history exists Influenza Vaccines (#1) 2024 11/19/2016 COVID-19 Vaccine ( season) 2024 Hepatitis B Vaccines Completed 06/05/2001, 2000, 2000 Pneumococcal Vaccine Aged Out 06/05/2001, 04/19/2001, 2000 No longer eligible based on patient's age to complete this topic HIB Vaccines Completed 02/08/2002, 05/26, 2000, Additional history exists IPV Vaccines Completed 06/25/2004, 04/29, 2000, Additional history exists MMR Vaccines Completed 06/25/2004, 06/05/2001 Varicella Vaccines Completed 06/25/2009, 06/05/2001 Hepatitis A Vaccines Completed 07/13/2013, 10/23/19 11 HPV Vaccines Completed 11/19/2016, 07/13/2013 Meningococcal Vaccine Completed 11/19/2016, 013 Men B Vaccine Aged Out No longer elig ible based on patient's age to complete this topic Procedures * Due to [facility] law, this organization might not be sharing sensitive test results. Procedure Name Priority Date/Time Associated Diagnosis Comments CHLAMYDIA AND GONORRHEA, AMPLIFIED Routine 12/19/2017 1:44 PM EDT Encounter for routine child health examination without abnormal findings from Last 3 Months or Most Recently Relevant to Health Maintenance Results * Due to [place] [email or web address] law, this organization might not be sharing sensitive test results. * Chlamydia and Gonorrhoea, Amplified (12/19/2017 1:44 PM EDT) Chlamydia Trachomatis, DNA Probe NEGATIVE (NEG) [facility] Comment: No Chlamydia Trachomatis RNA detected in this patient's sample (REFERENCE RANGE/NORMAL VALUE: NOT DETECTED) Note: This test uses professional nurse- mediated amplification method to detect rRNA from C. Trachomatis URINE GC AMP PROBE NEGATIVE (NEG) [facility] Comment: No Neisseria Gonorrhoeae RNA detected in this patient's sample (REFERENCE RANGE/NORMAL VALUE: NOT DETECTED) NOTE: This test uses professional nurse-mediated amplification method to detect rRNA from N.Gonorrhoeae. A negative result does not preclude infection. In the case of a negative urine result, testing of an endocervical(female) or urethral (male) specimen is recommended if there is high clinical suspicion of infection. Due to very high sensitivity of Nucleic Acid Amplification Test, false positive results may occur. Therefore, specimen handling is extremely important. In patients in whom the disease is unlikely, additional sample for testing should be considered after an initial positive result. The performance characteristics of this test have not been evaluated in children. The Aptima Combo2 assay is not intended for the evaluation of suspected sexual abuse or for other medico-legal indications. The ordering provider should assess if the patient had consensual sex without risk of sexual abuse. Consult the [facility] if needed. Contact phone number . Therapeutic failure or success cannot be determined with the Aptima Combo2 assay since nucleic acid may persist following appropriate antimicrobial therapy. The Centers for Disease Control and Prevention (CDC) recommends confirmatory retesting using culture or a different nucleic acid amplification test when positive results occur, if indicated. Testing performed or reported by [facility], a Service of [facility], [employer] [place] [address] CLIA [id number] Dior Bowen MD, Petroleum Analyst Urine 12/19/2017 1:44 PM EDT 12/19/2017 9:50 PM EDT us Tangela Rojas MD LAB MICROBIOLOGY - GENERAL ORDER NATO Final Result [facility] from Last 3 Months or Most Recently Relevant to Health Maintenance Care Teams Supervisor Benzene Refining Relationship Specialty Start Date End Date Tangela Rojas MD PCP - General Pediatrics 11/23/16
--- OUTSIDE RECORDS SUMMARY | 2025-03-03 10:18 | XMS_ITS | Encounter Summary ---
Author Organization [facility] Address [address] [place] [address] Phone Care Team Providers Care Form Tamping Machine Operator Name Role Phone Tangela Rojas MD Primary Care Provider Unavailab le Encounter Details Date Type Department Care Team (Late st Contact Info) Description 11/22/2016 Documentation [facility] [place] Medicine [facility] [address] [place], [place] [phone] Family Medicine, Physician [facility] [place] [address] Social History Tobacco Use Types Packs/Day Years Used Date Smoking Tobacco: Never Comments:Never smoker Comments Unknown Sex and Gender Information Value Date Recorded Sex Assigned at Not on file Legal Sex Female 4:52 PM EDT Gender Identity Not on file Sexual Orientation Not on file documented as of this encounter Plan of Treatment Not on file documented as of this encounter Visit Diagnoses Not on filedocumented in this encounter Care Teams Form Tamping Machine Operator Relationship Specialty Start Date End Date Tangela Rojas MD PCP - General Pediatrics 11/23/16 documented as of this encounter
--- OUTSIDE RECORDS SUMMARY | 2025-03-03 10:18 | XMS_ITS | Encounter Summary ---
Author Organization [facility] Address [address] [place] [address] Phone Care Team Providers Care Reinforcer Name Role Phone Tangela Rojas MD Primary Care Provider Unavailab le Encounter Details Date Type Department Care Team (Late st Contact Info) Description 11/22/2016 Documentation [facility] Family Medicine [facility] [address] [place], [place] [address] Family Medicine, Physician [facility] [place] [address] Social History Tobacco Use Types Packs/Day Years [...] on filedocumented in this encounter Care Teams Reinforcer Relationship Specialty Start Date End Date Tangela Rojas MD PCP - General Pediatrics 11/23/16 documented as of this encounter
--- OUTSIDE RECORDS SUMMARY | 2025-03-03 10:18 | XMS_ITS | Encounter Summary ---
Author Organization [facility] Address [address] [place] [address] Phone Care Team Providers Care News Editor Name Role Phone Tangela Rojas MD Primary Care Provider Unavail le Encounter Details Date Type Department Care Team (Late st Contact Info) Description 11/11/2016 Conversion Encounter [facility] - [address] [address] Social History Tobacco Use Types Packs/Day Years [...] on filedocumented in this encounter Care Teams News Editor Relationship Specialty Start Date End Date Tangela Rojas MD PCP - General Pediatrics 11/23/16 documented as of this encounter
--- OUTSIDE RECORDS SUMMARY | 2025-03-03 10:18 | XMS_ITS | Encounter Summary ---
Author Organization [facility] Address [address] [place] [address] Phone Care Team Providers Care Telephone Order Dispatcher Name Role Phone Tangela Rojas MD Primary Care Provider Unavailab le Encounter Details Date Type Department Care Team (Late st Contact Info) Description 11/22/[address] [facility] Family Medicine [facility] [address] [place], [place] [phone] Family Medicine, Physician [place] [address] Social History Tobacco Use Types Packs/Day Years [...] on filedocumented in this encounter Care Teams Telephone Order Dispatcher Relationship Specialty Start Date End Date Tangela Rojas MD PCP - General Pediatrics 11/23/16 documented as of this encounter
[2025-03-03] MEDS: iohexoL 350 MG/ML 100 ML INFUS..BTL IV (11:29)
[2025-03-03 13:21] VITALS: BP 121/73; PULSE 80; RESP 20; TEMP 36.5; O2SAT 100
== END 2025-03-03 13:23 | disposition home or self-care (01) ==
PROVIDERS: Emergency Provider Emergency Medicine
DX: N83.202 Unspecified ovarian cyst, left side (principal); R10.10 Upper abdominal pain, unspecified
CPT/HCPCS: 36415; 74177; 80053; 81003; 83690; 84702; 85025; 96361; 96365; 96375; 99284; J0131; J2405; Q9967

== ENCOUNTER → 2025-03-03 10:24 | Outpatient (BNV) | payer MEDICAID, SELFPAY | PROVIDERS: Emergency Provider Emergency Medicine; Visit Provider Radiology Diagnostic Radiology | DX: N83.202 Unspecified ovarian cyst, left side (principal) | CPT/HCPCS: 74177 ==

== ENCOUNTER 2025-03-08 23:40 | Emergency (ER) | payer MEDICAID, SELFPAY ==
--- NOTE | ~2025-03-08 | XR_ITS ---
CLINICAL HISTORY: pain constipation 1 view abdomen Comparison: None provided Findings: No pneumoperitoneum or pneumatosis. No abnormal calcifications. No acute fractures. IUD in the pelvis. IMPRESSION: Moderate stool. This document has been electronically signed by: Lars Moreno MD on 03/09/2025 02:35:38
[2025-03-08 23:59] VITALS: BP 138/81; PULSE 85; RESP 20; TEMP 36.7; O2SAT 100; BMI 24.4
[2025-03-09 00:16] LABS: MANUAL DIFF FLAG NO
[2025-03-09 00:17] LABS: Hematocrit 41.3 % (37.0-47.0); Hemoglobin 13.9 g/dl (12.0-16.0); Imm Gran Abs Auto 0.02 X10*3/uL (0.00-0.03); Imm Gran Pct Auto 0.3 % (0.0-0.4); Lymphocytes Absolute Auto 2.0 X10*3/uL (1.2-4.9); Mean Corpuscular HGB Conc 33.7 g/dl (31.0-35.0); Mean Corpuscular Hemoglobin 30.5 pg (27.0-33.0); Mean Corpuscular Volume 90.8 fL (80.0-98.0); NRBC Abs Auto 0.000 X10*3/uL (0.0-0.012); NRBC Pct Auto 0.0 /100WBC (0.0-0.2); Platelet Count 223 X10*3/uL (160-400); Red Blood Count 4.55 X10*6/uL (4.20-5.50); White Blood Count 6.6 X10*3/uL (4.8-10.8)
[2025-03-09 00:44] LABS: Alanine Aminotransferase 24 U/L (0-31); Albumin Level 4.9 g/dL (3.5-5.0); Alkaline Phosphatase 60 U/L (39-117); Anion Gap 14 (12-20); Aspartate Amino Transferase 30 U/L (5-31); Blood Urea Nitrogen 21 mg/dL (9-16); Calcium 9.8 mg/dL (8.4-10.2); Carbon Dioxide 24 mmol/L (22-29); Chloride 106 mmol/L (96-108); Creatinine Clr Calc Pharmacy 93.8; Estimated Glomerular Filt Rate > 60; Lipase 28 U/L (8-78); Magnesium 1.9 mg/dL (1.6-2.6); Potassium 3.5 mmol/L (3.3-5.1); Sodium 140 mmol/L (135-145); Total Protein 7.8 g/dL (6.5-8.0)
[2025-03-09 00:53] LABS: Resp Syncy Virus RNA Qual PCR NEGATIVE (Negative); SARS COV2 PCR INHOUSE NEGATIVE (Negative)
[2025-03-09 01:16] VITALS: BP 125/83; PULSE 77; RESP 18; TEMP 36.4; O2SAT 100
--- OUTSIDE RECORDS SUMMARY | 2025-03-09 01:27 | XMS_ITS | Encounter Summary ---
Author Organization [facility] Address [address] [place] [address] Phone Care Team Providers Care Melter Assistant Name Role Phone Tangela Rojas MD Primary Care Provider Unavailab le Encounter Details Date Type Department Care Team (Late st Contact Info) Description 10/23/2010 Documentation EM Family Medicine [address] [place], [place] [phone] Family Medicine, Physician [address] [place] [address] Social History Tobacco Use Types Packs/Day Years [...] on filedocumented in this encounter Care Teams Melter Assistant Relationship Specialty Start Date End Date Tangela Rojas MD PCP - General Pediatrics 11/23/16 documented as of this encounter
--- OUTSIDE RECORDS SUMMARY | 2025-03-09 01:27 | XMS_ITS | Encounter Summary ---
Author Organization [facility] Address [address] [place] [address] Phone Care Team Providers Care Director Compliance Name Role Phone Tangela Rojas MD Primary Care Provider Unavailab le Encounter Details Date Type Department Care Team (Late st Contact Info) Description 07/17/2013 Documentation EM Family Medicine [address] [place], [place] [phone] Family Medicine, Physician [address] [place] [address] Social History Tobacco Use Types Packs/Day Years [...] on filedocumented in this encounter Care Teams Director Compliance Relationship Specialty Start Date End Date Tangela Rojas MD PCP - General Pediatrics 11/23/16 documented as of this encounter
--- OUTSIDE RECORDS SUMMARY | 2025-03-09 01:27 | XMS_ITS | Encounter Summary ---
Author Organization [facility] Address [address] [place] [address] Phone Care Team Providers Care Orthopedic Nurse Practitioner Name Role Phone Tangela Rojas MD Primary Care Provider Unavailab le Encounter Details Date Type Department Care Team (Late st Contact Info) Description 01/18/2013 Documentation [facility] [facility] Family Medicine [address] [place], [place] [phone] Family Medicine, Physician [address] [place] [address] Social History Tobacco Use Types Packs/Day Years [...] on filedocumented in this encounter Care Teams Orthopedic Nurse Practitioner Relationship Specialty Start Date End Date Tangela Rojas MD PCP - General Pediatrics 11/23/16 documented as of this encounter
--- OUTSIDE RECORDS SUMMARY | 2025-03-09 01:27 | XMS_ITS | Encounter Summary ---
Author Organization [facility] Address [address] [place] [address] Phone Care Team Providers Care Human Resources Representative Name Role Phone Tangela Rojas MD Primary Care Provider Unavailab le Encounter Details Date Type Department Care Team (Late st Contact Info) Description 06/02/2012 Documentation EM Family Medicine [address] [place], [place] [phone] Family Medicine, Physician [address] [place] [address] Social History Tobacco Use Types Packs/Day Years [...] on filedocumented in this encounter Care Teams Human Resources Representative Relationship Specialty Start Date End Date Tangela Rojas MD PCP - General Pediatrics 11/23/16 documented as of this encounter
--- OUTSIDE RECORDS SUMMARY | 2025-03-09 01:27 | XMS_ITS | Encounter Summary ---
Author Organization [facility] Address [address] [place] [address] Phone Care Team Providers Care Maitre D Name Role Phone Tangela Rojas MD Primary Care Provider Unavailab le Encounter Details Date Type Department Care Team (Late st Contact Info) Description 06/02/2012 Documentation EM Family Medicine [address] [place], [place] [phone] Family Medicine, Physician [address] [place] [address] Social History Tobacco Use Types Packs/Day Years [...] on filedocumented in this encounter Care Teams Maitre D Relationship Specialty Start Date End Date Tangela Rojas MD PCP - General Pediatrics 11/23/16 documented as of this encounter
--- OUTSIDE RECORDS SUMMARY | 2025-03-09 01:27 | XMS_ITS | Encounter Summary ---
Author Organization [facility] Address [address] [place] [address] Phone Care Team Providers Care Supervisor Dimension Warehouse Name Role Phone Tangela Rojas MD Primary Care Provider Unavailab le Encounter Details Date Type Department Care Team (Late st Contact Info) Description 10/23/2010 Documentation EM Family Medicine [address] [place], [place] [phone] Family Medicine, Physician [address] [place] [address] Social History Tobacco Use Types Packs/Day Years [...] on filedocumented in this encounter Care Teams Supervisor Dimension Warehouse Relationship Specialty Start Date End Date Tangela Rojas MD PCP - General Pediatrics 11/23/16 documented as of this encounter
--- OUTSIDE RECORDS SUMMARY | 2025-03-09 01:27 | XMS_ITS | Encounter Summary ---
Author Organization [facility] Address [address] [place] [address] Phone Care Team Providers Care Grocery Deliverer Name Role Phone Tangela Rojas MD Primary Care Provider Unavailab le Encounter Details Date Type Department Care Team (Late st Contact Info) Description 07/17/2013 Documentation EM Family Medicine [address] [place], [place] [phone] Family Medicine, Physician [address] [place] [address] Social History Tobacco Use Types Packs/Day Years [...] on filedocumented in this encounter Care Teams Grocery Deliverer Relationship Specialty Start Date End Date Tangela Rojas MD PCP - General Pediatrics 11/23/16 documented as of this encounter
--- OUTSIDE RECORDS SUMMARY | 2025-03-09 01:27 | XMS_ITS | Encounter Summary ---
Author Organization [facility] Address [address] [place] [address] Phone Care Team Providers Care It Application Administrator Name Role Phone Tangela Rojas MD Primary Care Provider Unavailab le Encounter Details Date Type Department Care Team (Late st Contact Info) Description 07/17/2013 Documentation EM Family Medicine [address] [place], [place] [phone] Family Medicine, Physician [address] [place] [address] Social History Tobacco Use Types Packs/Day Years [...] on filedocumented in this encounter Care Teams It Application Administrator Relationship Specialty Start Date End Date Tangela Rojas MD PCP - General Pediatrics 11/23/16 documented as of this encounter
--- OUTSIDE RECORDS SUMMARY | 2025-03-09 01:28 | XMS_ITS | Encounter Summary ---
Author Organization [facility] Address [address] [place] [address] Phone Care Team Providers Care Bottle House Quality Control Technician Name Role Phone Tangela Rojas MD Primary Care Provider Unavail le Encounter Details Date Type Department Care Team (Late st Contact Info) Description 11/11/2016 Conversion Encounter [facility] - [address] [address] Social History Tobacco Use Types Packs/Day Years [...] on filedocumented in this encounter Care Teams Bottle House Quality Control Technician Relationship Specialty Start Date End Date Tangela Rojas MD PCP - General Pediatrics 11/23/16 documented as of this encounter
--- OUTSIDE RECORDS SUMMARY | 2025-03-09 01:28 | XMS_ITS | Clinical Summary ---
Author Organization [facility] Address [address] [place] [phone] Phone Care Team Providers Care Bridge Expert Name Role Phone Tangela Rojas MD Primary Care Provider Unavailab le Allergies No known active allergies Medications No known medications Active Problems Problem Noted Date Diagnosed Date Marijuana abuse 12/19/2017 Overview (12/19/2017): Underage use. Alcohol abuse 11/19/2016 Overview (01/11/2018): Currently on probation for assaulting a security police officer while intoxicated. Wearing ankle bracelet, has court hearing next month. Reports that drinking is no longer fun. It makes her depressed. Has not been engaged in therapy. (11/2017) Admitted to [facility] ED for agitation and violent behavior [...] complete this topic Procedures * Due to [facility] law, this organization might not be sharing sensitive test results. Procedure Name Priority Date/Time Associated Diagnosis Comments CHLAMYDIA AND GONORRHEA, AMPLIFIED Routine 12/19/2017 1:44 PM EDT Encounter for routine child health examination without abnormal findings from Last 3 Months or Most Recently Relevant to Health Maintenance Results * Due to [place] [employer] law, this organization might not be sharing sensitive test results. * Chlamydia and Gonorrhoea, Amplified (12/19/2017 1:44 PM EDT) Chlamydia Trachomatis, DNA Probe NEGATIVE (NEG) [facility] Comment: No Chlamydia Trachomatis RNA detected in this patient's sample (REFERENCE RANGE/NORMAL VALUE: NOT DETECTED) Note: This test uses facility mechanic- mediated amplification method to detect rRNA from C. Trachomatis URINE GC AMP PROBE NEGATIVE (NEG) [facility] Comment: No Neisseria Gonorrhoeae RNA detected in this patient's sample (REFERENCE RANGE/NORMAL VALUE: NOT DETECTED) NOTE: This test uses facility mechanic-mediated amplification method to detect rRNA from N.Gonorrhoeae. [...] without risk of sexual abuse. Consult the [facility] if needed. Contact phone number . Therapeutic failure or success cannot be determined with the Aptima Combo2 assay since nucleic acid may persist following appropriate antimicrobial therapy. The Centers for Disease Control and Prevention (CDC) recommends confirmatory retesting using culture or a different nucleic acid amplification test when positive results occur, if indicated. Testing performed or reported by [facility], a Service of [facility], [facility] [place] [address] CLIA [id number] Dior Bowen MD, Guidance Counselor Urine 12/19/2017 1:44 PM EDT 12/19/2017 9:50 PM EDT us Tangela Rojas MD LAB MICROBIOLOGY - GENERAL ORDER NATO Final Result [facility] from Last 3 Months or Most Recently Relevant to Health Maintenance Care Teams Bridge Expert Relationship Specialty Start Date End Date Tangela Rojas MD PCP - General Pediatrics 11/23/16
--- OUTSIDE RECORDS SUMMARY | 2025-03-09 01:28 | XMS_ITS | Clinical Summary ---
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
--- OUTSIDE RECORDS SUMMARY | 2025-03-09 01:28 | XMS_ITS | Encounter Summary ---
Author Organization [facility] Address [address] [place] [address] Phone Care Team Providers Care Experimental Machinist Name Role Phone Tangela Rojas MD Primary Care Provider Unavailab le Encounter Details Date Type Department Care Team (Late st Contact Info) Description 11/22/2016 Documentation [facility] Family Medicine [facility] [address] [place], [place] [phone] Family Medicine, Physician [facility] [place] [address] Social History Tobacco Use Types Packs/Day Years [...] on filedocumented in this encounter Care Teams Experimental Machinist Relationship Specialty Start Date End Date Tangela Rojas MD PCP - General Pediatrics 11/23/16 documented as of this encounter
--- OUTSIDE RECORDS SUMMARY | 2025-03-09 01:28 | XMS_ITS | Clinical Summary ---
Author Organization [employer] Address [address] [facility] [address] [place] [address] Care Team Providers Care Manager Farm Name Role Phone Unavailable Primary Care Provider Unavailabl e Social History Tobacco Use Types Packs/Day Years Used Date Smoking Tobacco: Never Assessed Comments Unknown Sex and Gender Information Value Date Recorded Sex Assigned at Not on file Legal Sex Female 11:54 AM EDT Gender Identity Not on file Sexual Orientation Not on file Plan of Treatment Health Maintenance Due Date Last Done Comments Depression Screening 2000 HIV Screening 2000 SDOH Screening 2000 Disability Screening 2000 Alcohol/Substance Use Screening 2012 Tobacco Screening 2012 Family Planning (PISQ) 06/04/2015 Hepatitis C Screening 2018 Pap Smear 2021 COVID-19 Vaccine ( season) 2024 Influenza Vaccine (#1) 2024 12/27/2022, 2016 DTaP/Tdap/Td Vaccines (8 - Td or Tdap) 07/21/2032 07/21/2022, 06/01/2012, 06/25/2004, Additional history exists Zoster Vaccines (1 of 2) 2050 RSV Patients and Patients Aged 60 years or older (1 - 1-dose 75+ series) 06/04/2075 Pneumococcal Vaccine: Pediatrics (0 to 5 Years) and At-Risk Patients (6 to 49) Years Aged Out 06/05/2001, 04/19/2001, 2000 No longer eligible based on patient's age to complete this topic HIB Vaccines Completed 02/08/2002, 05/26, 2000, Additional history exists Hepatitis B Vaccines Completed 06/25/2004, 05/21/2003, 06/05/2001, Additional history exists IPV Vaccines Completed 06/25/2004, 05/28, 05/21/2003, Additional history exists Hepatitis A Vaccines Completed 07/13/2013, 10/23/19 11 HPV Vaccines Completed 11/19/2016, 10/27, 07/13/2013 Meningococcal Vaccine Completed 11/19/2016, 013 Meningococcal B Vaccine Aged Out No l onger eligible based on patient's age to complete this topic RSV under 20 months Aged Out No longe r eligible based on patient's age to complete this topic Rotavirus Vaccines Aged Out No longer eligible based on patient's age to complete this topic
--- OUTSIDE RECORDS SUMMARY | 2025-03-09 01:28 | XMS_ITS | Clinical Summary ---
Author Organization [facility] Address [address] [place] [address] Phone Care Team Providers Care Remedial Teacher Name Role Phone Pcp, Unknown Primary [...] Currently on probation for assaulting a police magistrate while intoxicated. Wearing ankle bracelet, has court hearing next month. Reports that drinking is no longer fun. It makes her depressed. Has not been engaged in therapy. (11/2017) Admitted to [facility] ED for agitation and violent behavior [...] CHLAMYDIA TRACHOMATIS Not Detected Not Detected [facility] NEISERIA GONORRHOEAE Not Detected Not Detected [facility] SPECIMEN TYPE VAGINAL [facility] Other (Vaginal) 10/04/2024 1 :13 PM EDT 10/04/2024 5:21 PM EDT Irene Germain SERVICER COIN MACHINES LAB GENERAL ORDERABLES Edith l Result [facility] [address] [place] [address] from Last 3 Months or Most Recently Relevant to Health Maintenance Insurance [facility] [place] [address] [place] [address] C[employer] [facility] Member Subscriber Plan / Payer (Ef fective 2023-Present) Name:Becky Mandujano Relation to Subscriber:Self Name:Becky Mandujano Payer ID:[id number] Group ID:[id number] Type:Medicaid Address: [address] [place], [place] [address]S ACO Member Subscriber Plan / Payer (Ef fective 2023-) Name:Becky Mandujano Relation to Subscriber:Self Name:Becky Mandujano Payer ID:[id number] Group ID:[id number] Type:Medicaid Address: [address] C3 ACO [facility] C3 ACO [facility] Member Subscriber Plan / Payer (Ef fective 2023-) Name:Becky Mandujano Relation to Subscriber:Self Name:Becky Mandujano Payer ID:[id number] Group ID:[id number] Type:Medicaid Address: [address] C3 ACO [facility] [place] [address] [place] [address] C3 ACO Care Teams Remedial Teacher Relationship Specialty Start Date End Date Pcp, Unknown PCP - General 10/05/23 Additional Source Comments The information contained in this document represents components of the legal health record. It is not the complete legal health record.[facility]
--- OUTSIDE RECORDS SUMMARY | 2025-03-09 01:28 | XMS_ITS | Encounter Summary ---
Author Organization [facility] Address [address] [place] [address] Phone Care Team Providers Care Engine Dynamometer Tester Name Role Phone Tangela Rojas MD Primary Care Provider Unavailab le Encounter Details Date Type Department Care Team (Late st Contact Info) Description 11/22/[address] [facility] Family Medicine [facility] [address] [place], [place] [phone] Family Medicine, Physician [facility] [address] Social History Tobacco Use Types Packs/Day Years [...] on filedocumented in this encounter Care Teams Engine Dynamometer Tester Relationship Specialty Start Date End Date Tangela Rojas MD PCP - General Pediatrics 11/23/16 documented as of this encounter
--- OUTSIDE RECORDS SUMMARY | 2025-03-09 01:28 | XMS_ITS | Encounter Summary ---
Author Organization [facility] Address [address] [place] [address] Phone Care Team Providers Care Gas Meter Installer Helper Name Role Phone Tangela Rojas MD Primary Care Provider Unavailab le Encounter Details Date Type Department Care Team (Late st Contact Info) Description 11/22/2016 Documentation [facility] Family Medicine [facility] [address] [place], [place] [phone] Family Medicine, [place] [address] Social History Tobacco Use Types Packs/Day Years [...] on filedocumented in this encounter Care Teams Gas Meter Installer Helper Relationship Specialty Start Date End Date Tangela Rojas MD PCP - General Pediatrics 11/23/16 documented as of this encounter
[2025-03-09] MEDS: Sucralfate Oral Suspension 1 GM/10 ML ORAL.SUSP PO (02:15)
--- NOTE | 2025-03-09 02:44 | ED_ITS ---
HPI - General Adult General Chief complaint: Abdominal Pain Stated complaint: abd pain Time Seen by Provider: 03/09/25 01:16 Source: patient Limitations: no limitations History of Present Illness ED Provider: Crystal Gonzales PA-C HPI narrative: 24-year-old female presents with the abdominal pain since earlier this evening. Pain over upper abdomen, is nonradiating, her symptoms were triggered after eating this evening. Associated nausea vomiting. Patient states she was seen in the emergency room last week, she told she was ?having gallbladder issues?. Patient denies fever, diarrhea, constipation, abdominal distention or inability to pass flatus. No sick contacts with similar symptoms. Related Data Previous Rx's ?Medication ?Instructions ?Recorded amoxicillin 875 mg-potassium 1 tab PO BID 7 days #14 t abs 01/14/24 clavulanate 125 mg tablet ibuprofen 600 mg tablet 600 mg PO Q6H PRN pain #30 t abs 01/14/24 acetaminophen 500 mg tablet 500 mg PO Q6H PRN pain #30 tabs 03/03/25 (Tylenol Extra Strength) ondansetron 4 mg disintegrating 4 mg PO Q6H PRN nausea and 03/03/25 tablet vomiting #10 tabs ondansetron 4 mg disintegrating 4 mg PO Q8H PRN nausea and 03/09/25 tablet vomiting #12 tabs sucralfate 1 gram tablet (Carafate) 1 g PO QID PRN dys pepsia #15 tabs 03/09/25 docusate sodium 100 mg capsule 100 mg PO BID 4 days #8 caps 03/12/25 (Colace) lactulose 10 gram oral packet 20 g PO DAILY 3 days #3 ea 03/12/25 sennosides 8.6 mg tablet (Senna 8.6 mg PO BID 4 days # 8 tabs 03/12/25 Laxative) Allergies Allergy/AdvReac Type Severity Reaction Status Date / Time No Known Allergies Allergy Verified 03/12/25 10:45 Review of Systems 2 Review of Systems: Yes all other systems are reviewed and are negative Constitutional: Constitutional: Denies fatigue and Denies fever(s) Cardiovascular: Cardiovascular: Denies chest pain and Denies dyspnea Respiratory: Respiratory: Denies dyspnea Gastrointestinal: Gastrointestinal: Reports abdominal pain, Denies bloating, Denies constipation, Denies diarrhea, Reports nausea and Reports vomiting Musculoskeletal: Musculoskeletal: Denies back pain Endocrine: Endocrine: Denies fatigue [facility] Past Medical History Attestation statement: The following information was validated with the patient. Social History Social History Substance Use Type: Marijuana Advance Directives: No Advance Directives Information Provided: Yes Physical Exam ED Vital Signs: Vital Signs - 24 hr 03/08/25 23:59 03/09/25 01:16 Temperature 98.0 F 97.6 F Pulse Rate 85 77 Respiratory Rate 20 18 Blood Pressure 138/81 125/83 Pulse Oximetry 100 100 Oxygen Delivery Method Room Air Room Air BMI result Body Mass Index 24.4 Const Other: Alert Orientation/consciousness: patient oriented x3 Resp Effort & Inspection: normal respiratory effort Cardio Other: Normal peripheral perfusion GI Other: Soft nontender no guarding no distention Skin Other: Warm dry no rash Neuro General: patient oriented x3, gait normal, no focal motor deficits and CN's II- XI intact bilaterally Psych Other: Cooperative Medications Administered Discontinued Medications Generic Name Dose Route Start Last Admin Trade Name Sabine PRN Reason Stop Dose Admin Diphenhydramine HCl 25 mg 03/09/25 02:18 03/09/25 02:29 Diphenhydramine Hcl 50 Mg/Ml Vial IM 03/09/25 02:19 25 mg ONCE ONE Administration Metoclopramide HCl 10 mg 03/09/25 02:18 03/09/25 02:29 Metoclopramide Hcl 10 Mg/2 Ml Vial IM 03/09/25 02:19 10 mg ONCE ONE Administration Ondansetron HCl 4 mg 03/09/25 02:06 03/09/25 02:15 Ondansetron Odt 4 Mg Tab.Rapdis TRANSLINGU 03/09/25 02:07 4 mg ONCE ONE Administration Sucralfate 1 gm 03/09/25 02:05 03/09/25 02:15 Sucralfate Oral Suspension 1 Gm/10 Ml Oral.Susp PO 03/09/25 02:06 1 gm ONCE ONE Administration Medical Decision Making Medical Decision Making MDM Narrative: 24-year-old female presents with the abdominal pain since earlier this evening. Pain over upper abdomen, is nonradiating, her symptoms were triggered after eating this evening. Associated nausea vomiting. Patient states she was seen in the emergency room last week, she told she was ?having gallbladder issues?. Patient denies fever, diarrhea, constipation, abdominal distention or inability to pass flatus. No sick contacts with similar symptoms. No chronic issues History: Per patient I have considered the following differential diagnoses: Constipation, bowel obstruction, fecal impaction, biliary colic, cholecystitis, gastritis/GERD, pancreatitis Plan: Given distribution of discomfort in the setting of having postprandial symptoms, I did consider underlying biliary versus gastric etiology as cause for symptoms. However, her screening labs were completely normal including LFTs and lipase. The patient has had a negative CT scan, she was constipated at that time, she likely is still constipated as cause for her ongoing symptoms. There was no active gallbladder pathology. Adding on a KUB. Giving a GI cocktail. There was no indication for advanced imaging. I have independently reviewed the following tests: Labs: No leukocytosis, not anemic, no electrolyte abnormality, LFTs not elevated, not KUB:Findings: No pneumoperitoneum or pneumatosis. No abnormal calcifications. No acute fractures. IUD in the pelvis. IMPRESSION: Moderate stool. Differential Diagnosis Differential Diagnoses: The differential diagnosis associated with the presentation includes See [facility] Admission/Observation Consideration of admission/observation: Escalation of care including admission/observation considered Not applicable Lab Data [facility] Lab Attestation statement: I reviewed the patient's lab results. 03/09/25 00:10 03/09/25 00:10 Labs: Lab Results 03/09/25 Range/Units 00:10 WBC 6.6 (4.8-10.8) X10*3/uL RBC 4.55 (4.20-5.50) X10*6/uL Hgb 13.9 (12.0-16.0) g/dl Hct 41.3 (37.0-47.0) % MCV 90.8 (80.0-98.0) fL MCH 30.5 (27.0-33.0) pg MCHC 33.7 (31.0-35.0) g/dl RDW 12.1 (11.0-16.0) % Plt Count 223 (160-400) X10*3/uL MPV 11.2 (9.4-12.3) fL Immature Gran % (Auto) 0.3 (0.0-0.4) % Neut % (Auto) 60.3 (45-73) % Lymph % (Auto) 30.0 (20-40) % [place] % (Auto) 7.9 (2-11) % Eos % (Auto) 1.2 (0-4) % Baso % (Auto) 0.3 (0-2) % Lymph # (Auto) 2.0 (1.2-4.9) X10*3/uL [place] # (Auto) 0.5 (0.1-1.2) X10*3/uL Eos # (Auto) 0.1 (0.0-0.4) X10*3/uL Baso # (Auto) 0.0 (0.0-0.2) X10*3/uL Abs Immat Gran (auto) 0.02 (0.00-0.03) X10*3/uL Absolute Neuts (auto) 4.0 (2.0-8.3) x10*3/uL Absolute Nucleated RBC 0.000 (0.0-0.012) X10*3/uL Nucleated RBC % (auto) 0.0 (0.0-0.2) /100WBC Sodium 140 (135-145) mmol/L Potassium 3.5 (3.3-5.1) mmol/L Chloride 106 (96-108) mmol/L Carbon Dioxide 24 (22-29) mmol/L Anion Gap 14 (12-20) BUN 21 H (9-16) mg/dL Creatinine 0.76 (0.5-1.4) mg/dL Estim Creat Clear Calc 93.8 Estimated GFR > 60 Random Glucose 120 H (60-115) mg/dL Calcium 9.8 (8.4-10.2) mg/dL Magnesium 1.9 (1.6-2.6) mg/dL Total Bilirubin 0.3 (0.0-1.0) mg/dL AST 30 (5-31) U/L ALT 24 (0-31) U/L Alkaline Phosphatase 60 (39-117) U/L Total Protein 7.8 (6.5-8.0) g/dL Albumin 4.9 (3.5-5.0) g/dL Lipase 28 (8-78) U/L Beta HCG, Quant < 2 mIU/mL Influenza Type A (PCR) NEGATIVE (Negative) Influenza Type B (PCR) NEGATIVE (Negative) RSV RNA Qual (PCR) NEGATIVE (Negative) SARS-CoV-2 RNA (RT-PCR) NEGATIVE (Negative) Radiology Impression Discussion of test interpretation with radiology: I have reviewed the radiologist's reading. Discharge Plan Discharge Clinical Impression: Constipation Patient Disposition: Home, Self-Care Instructions: Constipation (ED) Additional Instructions: All of your screening labs were normal including your liver function tests. The x-ray revealed that you were considerably constipated. You also had constipation noted on the CT scan of your abdomen and pelvis obtained on March 03. See home care instructions. Constipation can cause acid reflux symptoms and nausea vomiting. You need to take [id number]-xhyrayt Colace, twice a day this is a stool softener. You also need to use [id number]-dfzqalt MiraLax, several times a day, 4-5, until you begin having multiple large volume bowel movements. Use the Carafate as needed for upper abdominal discomfort, uses Zofran as needed for nausea. Follow up with your primary care provider as needed. Prescriptions: New sucralfate [Carafate] 1 gram tablet 1 g PO QID PRN (Reason: dyspepsia) Qty: 15 0RF ondansetron 4 mg tablet,disintegrating 4 mg PO Q8H PRN (Reason: nausea and vomiting) Qty: 12 0RF No Action acetaminophen [Tylenol Extra Strength] 500 mg tablet 500 mg PO Q6H PRN (Reason: pain) Qty: 30 0RF ondansetron 4 mg tablet,disintegrating 4 mg PO Q6H PRN (Reason: nausea and vomiting) Qty: 10 0RF lactulose 10 gram packet 20 g PO DAILY 3 Days Qty: 3 0RF docusate sodium [Colace] 100 mg capsule 100 mg PO BID 4 Days Qty: 8 0RF sennosides [Senna Laxative] 8.6 mg tablet 8.6 mg PO BID 4 Days Qty: 8 0RF amoxicillin-pot clavulanate 875-125 mg tablet 1 tab PO BID 7 Days Qty: 14 0RF ibuprofen 600 mg tablet 600 mg PO Q6H PRN (Reason: pain) Qty: 30 0RF Interventions: ED Discharge Assessment Last Done: 03/09/25 04:56 Discharge Date/Time: 03/09/25 04:57 Print Language: Tamazight
[2025-03-09 04:56] VITALS: BP 125/83; PULSE 77; RESP 18; TEMP 36.4; O2SAT 100
== END 2025-03-09 04:57 | disposition home or self-care (01) ==
PROVIDERS: Emergency Provider Emergency Medicine
DX: K59.00 Constipation, unspecified (principal); R10.9 Unspecified abdominal pain; Z03.818 Encounter for observation for suspected exposure to other biological agents ruled out
CPT/HCPCS: 74018; 80053; 83690; 83735; 84702; 85025; 87637; 96372; 99284; J1200; J2765

== ENCOUNTER → 2025-03-09 01:35 | Outpatient (BNV) | payer MEDICAID, SELFPAY | PROVIDERS: Emergency Provider Emergency Medicine; Visit Provider Radiology Diagnostic Radiology | DX: K59.00 Constipation, unspecified (principal) | CPT/HCPCS: 74018 ==

== ENCOUNTER 2025-03-12 09:38 | Emergency (ER) | payer MEDICAID, SELFPAY ==
--- NOTE | ~2025-03-12 | XR_ITS ---
EXAMINATION: XR ABDOMEN 1 VIEW (KUB) HISTORY: Constipation COMPARISON: Comparison is made with the prior examination dated 03/09/2025. FINDINGS: A single supine view of the abdomen is submitted. The bowel gas pattern is unremarkable, without evidence of mechanical obstruction. There is a moderate amount of stool throughout the colon. An IUD is seen in the midline of the pelvis. No abnormal calcifications are identified. There are no abnormal soft tissue masses. The bones are intact. XR/XR KUB IMPRESSION: Moderate amount of stool throughout the colon. Electronically signed by: Griffin Keene MD 03/12/2025 11:07 AM [facility]
[2025-03-12 10:43] VITALS: BP 122/85; PULSE 96; RESP 18; TEMP 36.6; O2SAT 99; BMI 24.2
--- NOTE | 2025-03-12 10:44 | ED.ABDPAIN ---
HPI - Abdominal Pain General Chief Complaint: Abdominal Pain Stated Complaint: constipation Time Seen by Provider: 03/12/25 11:58 Source: patient Mode of arrival: ambulatory Limitations: no limitations Related Data Previous Rx's ?Medication ?Instructions ?Recorded amoxicillin 875 mg-potassium 1 tab PO BID 7 days #14 tabs 01/14/24 clavulanate 125 mg tablet ibuprofen 600 mg tablet 600 mg PO Q6H PRN pain #30 tabs 01/14/24 acetaminophen 500 mg tablet 500 mg PO Q6H PRN pain #30 tabs 03/03/25 (Tylenol Extra Strength) ondansetron 4 mg disintegrating 4 mg PO Q6H PRN nausea and 03/03/25 tablet vomiting #10 tabs ondansetron 4 mg disintegrating 4 mg PO Q8H PRN nausea and 03/09/25 tablet vomiting #12 tabs sucralfate 1 gram tablet (Carafate) 1 g PO QID PRN dyspepsia #15 tabs 03/09/25 docusate sodium 100 mg capsule 100 mg PO BID 4 days #8 caps 03/12/25 (Colace) lactulose 10 gram oral packet 20 g PO DAILY 3 days #3 ea 03/12/25 sennosides 8.6 mg tablet (Senna 8.6 mg PO BID 4 days #8 tabs 03/12/25 Laxative) Allergies Allergy/AdvReac Type Severity Reaction Status Date / Time No Known Allergies Allergy Verified 03/12/25 10:45 [facility] Social History Social History Substance Use Type: Marijuana Advance Directives: No Advance Directives Information Provided: Yes Physical Exam ED Vital Signs: Vital Signs - 24 hr 03/12/25 10:43 03/12/25 14:01 Temperature 98 F 98 F Pulse Rate 96 96 Respiratory Rate 18 18 Blood Pressure 122/85 122/85 Pulse Oximetry 99 99 Oxygen Delivery Method Room Air Room Air BMI result Body Mass Index 24.2 Course Course Course Narrative: 24 female with no significant past medical history was seen last week for abdominal pain diagnosed with constipation sent home with Carafate Zofran and told to take milk of magnesia. She has been following all instructions she is having liquid but no formed stool and she is having minimal fat flatulence. She has no preceding episodes to cause constipation. She is not on any medications that would cause it she has had no dietary changes. She notes she had green vomit Tuesday into Tuesday. She has had no fevers. She has been diagnosed with gallstones in the past but she denies any history of any prior abdominal surgery. At this time I am going to obtain her electrolytes to see if that is causing her symptoms as well as an x-ray to see if she has impacted. this is a RAPID medical screening exam the rest of the history and physical exam is to be done by the main provider. 10:45 AM 03/12/2025 (JOSE ELIAS JARAMILLO): this was the RME note please see additional note from main provider Medical Decision Making Lab Data 03/12/25 10:57 03/12/25 10:57 Labs: Lab Results 03/12/25 Range/Units 10:57 WBC 5.9 (4.8-10.8) X10*3/uL RBC 4.71 (4.20-5.50) X10*6/uL Hgb 14.6 (12.0-16.0) g/dl Hct 43.0 (37.0-47.0) % MCV 91.3 (80.0-98.0) fL MCH 31.0 (27.0-33.0) pg MCHC 34.0 (31.0-35.0) g/dl RDW 11.7 (11.0-16.0) % Plt Count 223 (160-400) X10*3/uL MPV 11.3 (9.4-12.3) fL Immature Gran % (Auto) 0.2 (0.0-0.4) % Neut % (Auto) 59.7 (45-73) % Lymph % (Auto) 24.9 (20-40) % [place] % (Auto) 10.8 (2-11) % Eos % (Auto) 3.9 (0-4) % Baso % (Auto) 0.5 (0-2) % Lymph # (Auto) 1.5 (1.2-4.9) X10*3/uL [place] # (Auto) 0.6 (0.1-1.2) X10*3/uL Eos # (Auto) 0.2 (0.0-0.4) X10*3/uL Baso # (Auto) 0.0 (0.0-0.2) X10*3/uL Abs Immat Gran (auto) 0.01 (0.00-0.03) X10*3/uL Absolute Neuts (auto) 3.5 (2.0-8.3) x10*3/uL Absolute Nucleated RBC 0.000 (0.0-0.012) X10*3/uL Nucleated RBC % (auto) 0.0 (0.0-0.2) /100WBC Sodium 138 (135-145) mmol/L Potassium 3.7 (3.3-5.1) mmol/L Chloride 100 (96-108) mmol/L Carbon Dioxide 29 (22-29) mmol/L Anion Gap 13 (12-20) BUN 13 (9-16) mg/dL Creatinine 0.70 (0.5-1.4) mg/dL Estim Creat Clear Calc 101.5 Estimated GFR > 60 Random Glucose 83 (60-115) mg/dL Calcium 9.9 (8.4-10.2) mg/dL Magnesium 2.4 (1.6-2.6) mg/dL Total Bilirubin 0.6 (0.0-1.0) mg/dL Direct Bilirubin 0.2 (0.0-0.5) mg/dL AST 21 (5-31) U/L ALT 17 (0-31) U/L Alkaline Phosphatase 64 (39-117) U/L Total Protein 8.2 H (6.5-8.0) g/dL Albumin 4.9 (3.5-5.0) g/dL Lipase 29 (8-78) U/L Beta HCG, Quant < 2 mIU/mL Discharge Plan Discharge Clinical Impression: Constipation Patient Disposition: Home, Self-Care Instructions: Constipation (ED) Additional Instructions: Labs came back reassuring. Xray shows constipation. Recommend follow up with PCP and GI. Return to the ED immeidiatley for abdominal pain, nausea, vommitting, inability to tolerate solids/liquids, or any other concerning symptom. Prescriptions: New lactulose 10 gram packet 20 g PO DAILY 3 Days Qty: 3 0RF docusate sodium [Colace] 100 mg capsule 100 mg PO BID 4 Days Qty: 8 0RF sennosides [Senna Laxative] 8.6 mg tablet 8.6 mg PO BID 4 Days Qty: 8 0RF No Action acetaminophen [Tylenol Extra Strength] 500 mg tablet 500 mg PO Q6H PRN (Reason: pain) Qty: 30 0RF ondansetron 4 mg tablet,disintegrating 4 mg PO Q6H PRN (Reason: nausea and vomiting) Qty: 10 0RF amoxicillin-pot clavulanate 875-125 mg tablet 1 tab PO BID 7 Days Qty: 14 0RF ibuprofen 600 mg tablet 600 mg PO Q6H PRN (Reason: pain) Qty: 30 0RF sucralfate [Carafate] 1 gram tablet 1 g PO QID PRN (Reason: dyspepsia) Qty: 15 0RF ondansetron 4 mg tablet,disintegrating 4 mg PO Q8H PRN (Reason: nausea and vomiting) Qty: 12 0RF Referrals: [facility] [Provider Group, Gastroenterology] - 2 days Referral Note: constipation Clinical Impression: [facility] [Primary Care Provider, Medical] - 1 day Referral Note: constipation Clinical Impression: Constipation Interventions: ED Discharge Assessment Last Done: 03/12/25 14:01 Discharge Date/Time: 03/12/25 14:02 Print Language: Danish
[2025-03-12 11:04] LABS: Hematocrit 43.0 % (37.0-47.0); Hemoglobin 14.6 g/dl (12.0-16.0); Imm Gran Abs Auto 0.01 X10*3/uL (0.00-0.03); Imm Gran Pct Auto 0.2 % (0.0-0.4); Lymphocytes Absolute Auto 1.5 X10*3/uL (1.2-4.9); MANUAL DIFF FLAG NO; Mean Corpuscular HGB Conc 34.0 g/dl (31.0-35.0); Mean Corpuscular Hemoglobin 31.0 pg (27.0-33.0); Mean Corpuscular Volume 91.3 fL (80.0-98.0); NRBC Abs Auto 0.000 X10*3/uL (0.0-0.012); NRBC Pct Auto 0.0 /100WBC (0.0-0.2); Platelet Count 223 X10*3/uL (160-400); Red Blood Count 4.71 X10*6/uL (4.20-5.50); White Blood Count 5.9 X10*3/uL (4.8-10.8)
[2025-03-12 11:25] LABS: Alanine Aminotransferase 17 U/L (0-31); Albumin Level 4.9 g/dL (3.5-5.0); Alkaline Phosphatase 64 U/L (39-117); Anion Gap 13 (12-20); Aspartate Amino Transferase 21 U/L (5-31); Blood Urea Nitrogen 13 mg/dL (9-16); Calcium 9.9 mg/dL (8.4-10.2); Carbon Dioxide 29 mmol/L (22-29); Chloride 100 mmol/L (96-108); Creatinine Clr Calc Pharmacy 101.5; Estimated Glomerular Filt Rate > 60; Lipase 29 U/L (8-78); Magnesium 2.4 mg/dL (1.6-2.6); Potassium 3.7 mmol/L (3.3-5.1); Sodium 138 mmol/L (135-145); Total Protein 8.2 g/dL (6.5-8.0)
--- NOTE | 2025-03-12 12:00 | ED.GENADULT ---
HPI - General Adult General Chief complaint: Abdominal Pain Stated complaint: constipation Time Seen by Provider: 03/12/25 11:58 Source: patient Mode of arrival: ambulatory Limitations: no limitations History of Present Illness ED Provider: Espinoza Lai HPI narrative: 24 yold female healthy presents to the ED for constipation for one week. patient denies any nausea, vomitting or symptoms. Patient manjinder any pmh of abdominal surgyer Related Data Previous Rx's ?Medication ?Instructions ?Recorded amoxicillin 875 mg-potassium 1 tab PO BID 7 days #14 tabs 01/14/24 clavulanate 125 mg tablet ibuprofen 600 mg tablet 600 mg PO Q6H PRN pain #30 tabs 01/14/24 acetaminophen 500 mg tablet 500 mg PO Q6H PRN pain #30 tabs 03/03/25 (Tylenol Extra Strength) ondansetron 4 mg disintegrating 4 mg PO Q6H PRN nausea and 03/03/25 tablet vomiting #10 tabs ondansetron 4 mg disintegrating 4 mg PO Q8H PRN nausea and 03/09/25 tablet vomiting #12 tabs sucralfate 1 gram tablet (Carafate) 1 g PO QID PRN dyspepsia #15 tabs 03/09/25 docusate sodium 100 mg capsule 100 mg PO BID 4 days #8 caps 03/12/25 (Colace) lactulose 10 gram oral packet 20 g PO DAILY 3 days #3 ea 03/12/25 sennosides 8.6 mg tablet (Senna 8.6 mg PO BID 4 days #8 tabs 03/12/25 Laxative) Allergies Allergy/AdvReac Type Severity Reaction Status Date / Time No Known Allergies Allergy Verified 03/12/25 10:45 Review of Systems Review of Systems: constipation Yes all other systems are reviewed and are negative [facility] Social History Social History Substance Use Type: Marijuana Advance Directives: No Advance Directives Information Provided: Yes Physical Exam ED Vital Signs: Vital Signs - 24 hr 03/12/25 14:01 Temperature 98 F Pulse Rate 96 Respiratory Rate 18 Blood Pressure 122/85 Pulse Oximetry 99 Oxygen Delivery Method Room Air BMI result Body Mass Index 24.2 Const General: cooperative, healthy appearing, comfortable, no acute distress, well developed, alert, awake and Physically active Orientation/consciousness: patient oriented x3 [facility] Head: Yes normal to inspection, Yes No palpable skull fracture present, Yes normocephalic and Yes atraumatic Eyes General: appearance normal, both eyes and all related structures Neck Neck: Yes normal visual inspection, Yes full ROM, Yes no lymphadenopathy, Yes no meningeal signs, Yes trachea midline, Yes supple, No anterior neck swelling and No tender Chest Chest palpation & inspection: normal inspection of the chest and normal palpation of entire chest wall Resp Effort & Inspection: normal respiratory effort and able to speak in complete sentences Auscultation: clear to auscultation bilaterally Cardio Jugular venous distension: no JVD Heart sounds: S1 normal heart sound present and S2 normal heart sound present GI Inspection: Yes normal to inspection Palpation (GI): Soft to palpation, not firm, nontender, no guarding and not rigid General: Yes no CVA tenderness Back/Spine/Pelvis Back: no CVA tenderness and No back tenderness Skin General skin exam: no rashes or lesions noted, elasticity normal and turgor normal Neuro General: patient oriented x3, gait normal, tone normal, moves all extremities, Normal light touch and pain sensation, no meningeal signs, no focal motor deficits, CN's II-XI intact bilaterally and normal sensation to monofilament Extrem General: Yes normal to inspection, Yes full ROM and Yes capillary refill normal Psych Appearance: grossly normal, well kempt and not disheveled Medical Decision Making Medical Decision Making [facility] Narrative: 24 yold female presents to the ED for constiaption for on week. Patient has no obstructive symptosm. labs normal. KUB shows constipation without obstruction. patient has no pmh of abdominal surgery. Case discussed with Dr. Boone who recommends colace, senna, and lactulose prescription. Not suspecting appendicitis, ectopic , UTI, small bowel obstruction, ovarian torsions, pyelonephritits, sepsis, or any other life threatening etiolgoy. patient explained worrisome signs. Differential Diagnosis Differential Diagnoses: The differential diagnosis associated with the presentation includes (cosntipation, SBO, ) Admission/Observation Consideration of admission/observation: Escalation of care including admission/observation considered Lab Data [facility] Lab Attestation statement: I reviewed the patient's lab results. 03/12/25 10:57 03/12/25 10:57 Labs: Lab Results 03/12/25 Range/Units 10:57 WBC 5.9 (4.8-10.8) X10*3/uL RBC 4.71 (4.20-5.50) X10*6/uL Hgb 14.6 (12.0-16.0) g/dl Hct 43.0 (37.0-47.0) % MCV 91.3 (80.0-98.0) fL MCH 31.0 (27.0-33.0) pg MCHC 34.0 (31.0-35.0) g/dl RDW 11.7 (11.0-16.0) % Plt Count 223 (160-400) X10*3/uL MPV 11.3 (9.4-12.3) fL Immature Gran % (Auto) 0.2 (0.0-0.4) % Neut % (Auto) 59.7 (45-73) % Lymph % (Auto) 24.9 (20-40) % [place] % (Auto) 10.8 (2-11) % Eos % (Auto) 3.9 (0-4) % Baso % (Auto) 0.5 (0-2) % Lymph # (Auto) 1.5 (1.2-4.9) X10*3/uL [place] # (Auto) 0.6 (0.1-1.2) X10*3/uL Eos # (Auto) 0.2 (0.0-0.4) X10*3/uL Baso # (Auto) 0.0 (0.0-0.2) X10*3/uL Abs Immat Gran (auto) 0.01 (0.00-0.03) X10*3/uL Absolute Neuts (auto) 3.5 (2.0-8.3) x10*3/uL Absolute Nucleated RBC 0.000 (0.0-0.012) X10*3/uL Nucleated RBC % (auto) 0.0 (0.0-0.2) /100WBC Sodium 138 (135-145) mmol/L Potassium 3.7 (3.3-5.1) mmol/L Chloride 100 (96-108) mmol/L Carbon Dioxide 29 (22-29) mmol/L Anion Gap 13 (12-20) BUN 13 (9-16) mg/dL Creatinine 0.70 (0.5-1.4) mg/dL Estim Creat Clear Calc 101.5 Estimated GFR > 60 Random Glucose 83 (60-115) mg/dL Calcium 9.9 (8.4-10.2) mg/dL Magnesium 2.4 (1.6-2.6) mg/dL Total Bilirubin 0.6 (0.0-1.0) mg/dL Direct Bilirubin 0.2 (0.0-0.5) mg/dL AST 21 (5-31) U/L ALT 17 (0-31) U/L Alkaline Phosphatase 64 (39-117) U/L Total Protein 8.2 H (6.5-8.0) g/dL Albumin 4.9 (3.5-5.0) g/dL Lipase 29 (8-78) U/L Beta HCG, Quant < 2 mIU/mL Independent Interpretation I performed an independent interpretation of an: Plain X-Ray Radiology Impression Discussion of test interpretation with radiology: I have reviewed the radiologist's reading. Independent Historian Clinical information obtained from an independent historian. History obtained from or confirmed by: Other (patient) Discharge Plan Discharge Clinical Impression: Constipation Patient Disposition: Home, Self-Care Instructions: Constipation (ED) Additional Instructions: Labs came back reassuring. Xray shows constipation. Recommend follow up with PCP and GI. Return to the ED immeidiatley for abdominal pain, nausea, vommitting, inability to tolerate solids/liquids, or any other concerning symptom. Prescriptions: New lactulose 10 gram packet 20 g PO DAILY 3 Days Qty: 3 0RF docusate sodium [Colace] 100 mg capsule 100 mg PO BID 4 Days Qty: 8 0RF sennosides [Senna Laxative] 8.6 mg tablet 8.6 mg PO BID 4 Days Qty: 8 0RF No Action acetaminophen [Tylenol Extra Strength] 500 mg tablet 500 mg PO Q6H PRN (Reason: pain) Qty: 30 0RF ondansetron 4 mg tablet,disintegrating 4 mg PO Q6H PRN (Reason: nausea and vomiting) Qty: 10 0RF amoxicillin-pot clavulanate 875-125 mg tablet 1 tab PO BID 7 Days Qty: 14 0RF ibuprofen 600 mg tablet 600 mg PO Q6H PRN (Reason: pain) Qty: 30 0RF sucralfate [Carafate] 1 gram tablet 1 g PO QID PRN (Reason: dyspepsia) Qty: 15 0RF ondansetron 4 mg tablet,disintegrating 4 mg PO Q8H PRN (Reason: nausea and vomiting) Qty: 12 0RF Referrals: [facility] [place] [facility] [Provider Group, Gastroenterology] - 2 days Referral Note: constipation Clinical Impression: [facility] [Primary Care Provider, Medical] - 1 day Referral Note: constipation Clinical Impression: Constipation Interventions: ED Discharge Assessment Last Done: 03/12/25 14:01 Discharge Date/Time: 03/12/25 14:02 Print Language: Sammarinese
[2025-03-12 14:01] VITALS: BP 122/85; PULSE 96; RESP 18; TEMP 36.6; O2SAT 99
--- OUTSIDE RECORDS SUMMARY | 2025-03-12 16:15 | XMS_ITS | Encounter Summary ---
Author Organization [facility] Address [address] [place] [address] Phone Care Team Providers Care Evp Business Development Name Role Phone Tangela Rojas MD Primary Care Provider Unavailab le Encounter Details Date Type Department Care Team (Late st Contact Info) Description 06/02/2012 Documentation EM Family Medicine [address] [place], [place] [phone] Family Medicine, Physician [address] [place] [address] Social History Tobacco Use Types Packs/Day Years [...] on filedocumented in this encounter Care Teams Evp Business Development Relationship Specialty Start Date End Date Tangela Rojas MD PCP - General Pediatrics 11/23/16 documented as of this encounter
--- OUTSIDE RECORDS SUMMARY | 2025-03-12 16:15 | XMS_ITS | Encounter Summary ---
Author Organization [facility] Address [address] [place] [address] Phone Care Team Providers Care Feeder Worker Power Unit Operator Name Role Phone Tangela Rojas MD Primary Care Provider Unavailab le Encounter Details Date Type Department Care Team (Late st Contact Info) Description 07/17/2013 Documentation EM Family Medicine [address] [place], [place] [phone] Family Medicine, Physician [address] [place] [address] Social History Tobacco Use Types Packs/Day Years [...] on filedocumented in this encounter Care Teams Feeder Worker Power Unit Operator Relationship Specialty Start Date End Date Tangela Rojas MD PCP - General Pediatrics 11/23/16 documented as of this encounter
--- OUTSIDE RECORDS SUMMARY | 2025-03-12 16:15 | XMS_ITS | Encounter Summary ---
Author Organization [facility] Address [address] [place] [address] Phone Care Team Providers Care Manager Communication Name Role Phone Tangela Rojas MD Primary Care Provider Unavailab le Encounter Details Date Type Department Care Team (Late st Contact Info) Description 01/18/2013 Documentation [facility] [place] [place] Family Medicine [address] [place], [place] [phone] Family Medicine, Physician [address] [place] [address] Social History Tobacco Use Types Packs/Day Years [...] on filedocumented in this encounter Care Teams Manager Communication Relationship Specialty Start Date End Date Tangela Rojas MD PCP - General Pediatrics 11/23/16 documented as of this encounter
--- OUTSIDE RECORDS SUMMARY | 2025-03-12 16:15 | XMS_ITS | Encounter Summary ---
Author Organization [facility] Address [address] [place] [address] Phone Care Team Providers Care Certified Alcohol Drug Counselor Name Role Phone Tangela Rojas MD Primary Care Provider Unavailab le Encounter Details Date Type Department Care Team (Late st Contact Info) Description 07/17/2013 Documentation EM Family Medicine [address] [place], [place] [phone] Family Medicine, Physician [address] [place] [address] Social History Tobacco Use Types Packs/Day Years [...] on filedocumented in this encounter Care Teams Certified Alcohol Drug Counselor Relationship Specialty Start Date End Date Tangela Rojas MD PCP - General Pediatrics 11/23/16 documented as of this encounter
--- OUTSIDE RECORDS SUMMARY | 2025-03-12 16:15 | XMS_ITS | Encounter Summary ---
Author Organization [facility] Address [address] [place] [address] Phone Care Team Providers Care Ad Operations Associate Name Role Phone Tangela Rojas MD Primary Care Provider Unavailab le Encounter Details Date Type Department Care Team (Late st Contact Info) Description 07/17/2013 Documentation EM Family Medicine [address] [place], [place] [phone] Family Medicine, Physician [address] [place] [address] Social History Tobacco Use Types Packs/Day Years [...] on filedocumented in this encounter Care Teams Ad Operations Associate Relationship Specialty Start Date End Date Tangela Rojas MD PCP - General Pediatrics 11/23/16 documented as of this encounter
--- OUTSIDE RECORDS SUMMARY | 2025-03-12 16:15 | XMS_ITS | Encounter Summary ---
Author Organization [facility] Address [address] [place] [address] Phone Care Team Providers Care Physical Therapy Coordinator Name Role Phone Tangela Rojas MD Primary Care Provider Unavailab le Encounter Details Date Type Department Care Team (Late st Contact Info) Description 10/23/2010 Documentation EM Family Medicine [address] [place], [place] [phone] Family Medicine, Physician [address] [place] [address] Social History Tobacco Use Types Packs/Day Years [...] on filedocumented in this encounter Care Teams Physical Therapy Coordinator Relationship Specialty Start Date End Date Tangela Rojas MD PCP - General Pediatrics 11/23/16 documented as of this encounter
--- OUTSIDE RECORDS SUMMARY | 2025-03-12 16:15 | XMS_ITS | Encounter Summary ---
Author Organization [facility] Address [address] [place] [address] Phone Care Team Providers Care Organizational Consultant Name Role Phone Tangela Rojas MD Primary Care Provider Unavailab le Encounter Details Date Type Department Care Team (Late st Contact Info) Description 10/23/2010 Documentation EM Family Medicine [address] [place], [place] [phone] Family Medicine, Physician [address] [place] [address] Social History Tobacco Use Types Packs/Day Years [...] on filedocumented in this encounter Care Teams Organizational Consultant Relationship Specialty Start Date End Date Tangela Rojas MD PCP - General Pediatrics 11/23/16 documented as of this encounter
--- OUTSIDE RECORDS SUMMARY | 2025-03-12 16:16 | XMS_ITS | Clinical Summary ---
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 Wearing ankle bracelet, has court hearing next month. Reports that drinking is no longer fun. It makes her depressed. Has not been engaged in therapy. (11/2017) Admitted to [facility] ED for agitation and violent behavior [...] EDT) CHLAMYDIA TRACHOMATIS Not Detected Not Detected [facility] NEISERIA GONORRHOEAE Not Detected Not Detected [facility] SPECIMEN TYPE VAGINAL [facility] Other (Vaginal) 10/04/2024 1 :13 PM EDT 10/04/2024 5:21 PM EDT Irene Germain GEOLOGICAL TECHNICIAN LAB GENERAL ORDERABLES Edith l Result [facility] [address] [place] [address] from Last 3 Months or Most Recently Relevant to Health Maintenance Insurance [facility] [place] [address] [address] [employer] [facility] Member Subscriber Plan / Payer (Ef fective 2023-Present) Name:Becky Mandujano Relation to Subscriber:Self Name:Becky Mandujano Payer ID:[id number] Group ID:[id number] Type:Medicaid Address: [address] [place], [place] [address] ACO Member Subscriber Plan / Payer (Ef fective 2023-) Name:Becky Mandujano Relation to Subscriber:Self Name:Becky Mandujano Payer ID:[id number] Group ID:[id number] Type:Medicaid Address: [address] C3 ACO [employer] [facility] [employer] C3 ACO [facility] [employer] Member Subscriber Plan / Payer (Ef fective 2023-) Name:Becky Mandujano Relation to Subscriber:Self Name:Becky Mandujano Payer ID:[id number] Group ID:[id number] Type:Medicaid Address: [address] C3 ACO [facility] [place] [address] C3 ACO Care Teams Seed Trucker Relationship Specialty Start Date End Date Pcp, Unknown PCP - General 10/05/23 Additional Source Comments The information contained in this document represents components of the legal health record. It is not the complete legal health record.[facility]
--- OUTSIDE RECORDS SUMMARY | 2025-03-12 16:16 | XMS_ITS | Clinical Summary ---
Author Organization [facility] Address [address] [place] [id number] Phone Care Team Providers Care Rn Support Services Name Role Phone Tangela Rojas MD Primary Care Provider Unavailab le Allergies No known active allergies Medications No known medications Active Problems Problem Noted Date Diagnosed Date Marijuana abuse 12/19/2017 Overview (12/19/2017): Underage use. 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 Wearing ankle bracelet, has court hearing next month. Reports that drinking is no longer fun. It makes her depressed. Has not been engaged in therapy. (11/2017) Admitted to [facility] ED for agitation and violent behavior [...] complete this topic Procedures * Due to [facility] law, this organization might not be sharing sensitive test results. Procedure Name Priority Date/Time Associated Diagnosis Comments CHLAMYDIA AND GONORRHEA, AMPLIFIED Routine 12/19/2017 1:44 PM EDT Encounter for routine child health examination without abnormal findings from Last 3 Months or Most Recently Relevant to Health Maintenance Results * Due to [place] [employer] law, this organization might not be sharing sensitive test results. * Chlamydia and Gonorrhoea, Amplified (12/19/2017 1:44 PM EDT) Chlamydia Trachomatis, DNA Probe NEGATIVE (NEG) [facility] Comment: No Chlamydia Trachomatis RNA detected in this patient's sample (REFERENCE RANGE/NORMAL VALUE: NOT DETECTED) Note: This test uses hoop punch and coiler operator- mediated amplification method to detect rRNA from C. Trachomatis URINE GC AMP PROBE NEGATIVE (NEG) [facility] Comment: No Neisseria Gonorrhoeae RNA detected in this patient's sample (REFERENCE RANGE/NORMAL VALUE: NOT DETECTED) NOTE: This test uses hoop punch and coiler operator-mediated amplification method to detect rRNA from N.Gonorrhoeae. [...] without risk of sexual abuse. Consult the [facility] if needed. Contact phone number . Therapeutic failure or success cannot be determined with the Aptima Combo2 assay since nucleic acid may persist following appropriate antimicrobial therapy. The Centers for Disease Control and Prevention (CDC) recommends confirmatory retesting using culture or a different nucleic acid amplification test when positive results occur, if indicated. Testing performed or reported by [facility], a Service of [facility], [facility] [place] [address] CLIA [id number] Dior Bowen MD, Creche Attendant Urine 12/19/2017 1:44 PM EDT 12/19/2017 9:50 PM EDT us Tangela Rojas MD LAB MICROBIOLOGY - GENERAL ORDER NATO Final Result [facility] from Last 3 Months or Most Recently Relevant to Health Maintenance Care Teams Rn Support Services Relationship Specialty Start Date End Date Tangela Rojas MD PCP - General Pediatrics 11/23/16
--- OUTSIDE RECORDS SUMMARY | 2025-03-12 16:16 | XMS_ITS | Clinical Summary ---
Author Organization [employer] Address [address] [facility] [address] [place] [address] Care Team Providers Care Fugitive Detective Name Role Phone Unavailable Primary Care Provider [...]
--- OUTSIDE RECORDS SUMMARY | 2025-03-12 16:16 | XMS_ITS | Encounter Summary ---
Author Organization [facility] Address [address] [place] [address] Phone Care Team Providers Care Mini Shifter Name Role Phone Tangela Rojas MD Primary Care Provider Unavailab le Encounter Details Date Type Department Care Team (Late st Contact Info) Description 06/02/2012 Documentation [facility] Family Medicine [address] [place], [place] [phone] Family Medicine, Physician [address] [place] [address] Social History Tobacco Use Types Packs/Day Years [...] on filedocumented in this encounter Care Teams Mini Shifter Relationship Specialty Start Date End Date Tangela Rojas MD PCP - General Pediatrics 11/23/16 documented as of this encounter
--- OUTSIDE RECORDS SUMMARY | 2025-03-12 16:16 | XMS_ITS | Encounter Summary ---
Author Organization [facility] Address [address] [place] [address] Phone Care Team Providers Care Programmer Numerical Control Name Role Phone Tangela Rojas MD Primary Care Provider Unavail le Encounter Details Date Type Department Care Team (Late st Contact Info) Description 11/11/2016 Conversion Encounter [facility] - [address] [address] Social History Tobacco Use Types Packs/Day Years [...] on filedocumented in this encounter Care Teams Programmer Numerical Control Relationship Specialty Start Date End Date Tangela Rojas MD PCP - General Pediatrics 11/23/16 documented as of this encounter
--- OUTSIDE RECORDS SUMMARY | 2025-03-12 16:16 | XMS_ITS | Encounter Summary ---
Author Organization [facility] Address [address] [place] [address] Phone Care Team Providers Care Wireless Cellular Technician Name Role Phone Tangela Rojas MD Primary Care Provider Unavailab le Encounter Details Date Type Department Care Team (Late st Contact Info) Description 11/22/2016 Documentation [facility] [place] Family Medicine [facility] [address] [place], [place] [phone] Family Medicine, Physician [facility] [place] [address] Social History Tobacco Use Types Packs/Day Years [...] on filedocumented in this encounter Care Teams Wireless Cellular Technician Relationship Specialty Start Date End Date Tangela Rojas MD PCP - General Pediatrics 11/23/16 documented as of this encounter
--- OUTSIDE RECORDS SUMMARY | 2025-03-12 16:16 | XMS_ITS | Encounter Summary ---
Author Organization [facility] Address [address] [place] [address] Phone Care Team Providers Care Repairer Maintenance Building Name Role Phone Tangela Rojas MD Primary Care Provider Unavailab le Encounter Details Date Type Department Care Team (Late st Contact Info) Description 11/22/[address] [facility] [place] Family Medicine [facility] [address] [place], [place] [phone] Family Medicine, Physician [facility] [place] [address] Social History Tobacco Use Types Packs/Day Years [...] on filedocumented in this encounter Care Teams Repairer Maintenance Building Relationship Specialty Start Date End Date Tangela Rojas MD PCP - General Pediatrics 11/23/16 documented as of this encounter
--- OUTSIDE RECORDS SUMMARY | 2025-03-12 16:16 | XMS_ITS | Clinical Summary ---
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
--- OUTSIDE RECORDS SUMMARY | 2025-03-12 16:16 | XMS_ITS | Encounter Summary ---
Author Organization [facility] Address [address] [place] [address] Phone Care Team Providers Care Digital Sales Representative Name Role Phone Tangela Rojas MD Primary Care Provider Unavailab le Encounter Details Date Type Department Care Team (Late st Contact Info) Description 11/22/2016 Documentation [facility] [place] [facility] [address] [place], [place] [phone] Family Medicine, [place] [address] Social History Tobacco Use Types Packs/Day Years [...] on filedocumented in this encounter Care Teams Digital Sales Representative Relationship Specialty Start Date End Date Tangela Rojas MD PCP - General Pediatrics 11/23/16 documented as of this encounter
== END 2025-03-12 14:02 | disposition home or self-care (01) ==
PROVIDERS: Emergency Provider Emergency Medicine
DX: K59.00 Constipation, unspecified (principal)
CPT/HCPCS: 36415; 74018; 80048; 80076; 83690; 83735; 84702; 85025; 99282; 99283

== ENCOUNTER → 2025-03-12 10:43 | Outpatient (BNV) | payer MEDICAID, SELFPAY | PROVIDERS: Emergency Provider Emergency Medicine; Visit Provider Radiology Diagnostic Radiology | DX: K59.00 Constipation, unspecified (principal) | CPT/HCPCS: 74018 ==